=== PATIENT | female | born 1975 | race American Indian/Alaskan Native ===

== ENCOUNTER 2018-03-26 09:01 | Emergency (ER) | payer MEDICAID, SELFPAY ==
[2018-03-26 09:17] VITALS: BP 102/73; PULSE 70; RESP 12; TEMP 36.3; O2SAT 98
--- NOTE | 2018-03-26 09:27 | ED.EYEPROB ---
HPI - Eye Problem General Chief complaint: Eye Problems Stated complaint: POSSIBLE PINKEYE Time Seen by Provider: 03/26/18 09:08 Source: patient Mode of arrival: ambulatory Limitations: no limitations History of Present Illness HPI Narrative: Patient is a 43-year-old female who presents with right eye irritation. She thinks she has pinkeye. She says the last week or so she has woken up with crusting over her right eye. Today she is having more irritation. No real discharge throughout the day. She feels like he has some blurry vision. She does were glasses MD chief complaint: eye pain and eye redness Related Data Previous Rx's Medication Instructions Recorded polymyxin B sulf-trimethoprim 1 drop EYE-BOTH Q4HRWA 7 Days #10 03/26/18 [Polytrim] ml Allergies Allergy/AdvReac Type Severity Reaction Status Date / Time No Known Drug Allergies Allergy Verified 03/26/18 09:20 Review of Systems Review of Systems GENERAL: Denies chills,fever HEENT: See HPI RESPIRATORY: Denies dyspnea, cough, wheezing CARDIOVASCULAR: Denies chest pain, palpitations GASTROINTESTINAL: Denies nausea, vomiting MUSCULOSKELETAL: Denies extremity pain, injury SKIN: No rash, no laceration, no pruritus NEUROLOGIC: Denies weakness, dizziness, headache, numbness 8 point review of systems is negative except for those stated above and HPI PFSH Medical History Fibromyalgia (Acute) Social History Smoking Status: Never smoker alcohol intake: never substance use type: does not use Exam Initial Vital Signs Initial Vital Signs: Vital Signs Temperature 97.3 F L 03/26/18 09:17 Pulse Rate 70 03/26/18 09:17 Respiratory Rate 12 03/26/18 09:17 Blood Pressure 102/73 03/26/18 09:17 Pulse Oximetry 98 03/26/18 09:17 Const General: cooperative and healthy appearing Orientation: alert, awake and oriented x3 Eyes General: appearance normal, both eyes and all related structures Periorbital: periorbital findings normal Eyelids: eyelids normal Conjunctivae: conjunctival abnormality right conjunctival injection circumcorneal; without discharge Sclera: sclerae normal Cornea: corneas normal and fluorescein used (No dye uptake) EOM: EOM intact bilaterally Direct ophthalmoscopy: normal light reflex Other: Pressure in the right eye 25mmHg, pressure in left eye 23 mmHg Cardio Pulses: normal peripheral pulses Back/Spine/Pelvis Back: No CVA tenderness Cervical Spine: cervical ROM normal and No pain with cervical ROM Thoracic/Lumbar Spine: thoracic and lumbar spine normal to inspection Skin General: no rashes or lesions noted, No jaundice and No petechiae Neuro General: alert, awake and oriented x3 Cranial Nerves: CN's II-XI intact bilaterally Course Orders Ordered: Discontinued Medications Proparacaine HCl (Parcaine 0.5% Ophth Elva) 1 drops EYE-RIGHT NOW ONE Stop: 03/26/18 09:31 Last Admin: 03/26/18 09:31 Dose: 1 drop Vital Signs - 8 hr 03/26/18 09:17 Temperature 97.3 F L Pulse Rate 70 Respiratory Rate 12 Blood Pressure 102/73 Pulse Oximetry 98 Discharge Plan Departure Patient Disposition: Home Clinical Impression: Acute conjunctivitis, right eye Discharge Date/Time: 03/26/18 09:47 Interventions: ED Discharge Assessment Last Done: 03/26/18 09:46 Instructions: Conjunctivitis Activity Restrictions/Additional Instructions: *You have been diagnosed with right eye conjunctivitis *What to do: Eyes will be sensitive to light knee may need to wear sunglasses *Continue to take medications as directed Eda trim 1 drop both eyes every 4 hr while awake *Follow up with your primary care provider in 2-3 days *Return to ER if you should have eye pain, vision changes or any new, worsening or concerning symptoms Prescriptions: New polymyxin B sulf-trimethoprim [Polytrim] 10,000 unit- 1 mg/mL drops 1 drop EYE-BOTH Q4HRWA 7 Days Qty: 10 RF: 0
[2018-03-26] MEDS: PROPARACAINE 0.5% OPHTH SOL 1 DROPS EYE-RIGHT (09:31)
== END 2018-03-26 09:47 | disposition home or self-care (01) ==
PROVIDERS: Emergency Provider Emergency Medicine
DX: H10.31 Unspecified acute conjunctivitis, right eye (principal)
CPT/HCPCS: 99283

== ENCOUNTER 2018-03-28 16:55 | Emergency (ER) | payer MEDICAID, SELFPAY ==
[2018-03-28 17:03] VITALS: BP 105/69; PULSE 92; RESP 19; TEMP 36.7; O2SAT 96
--- NOTE | 2018-03-28 17:28 | ED.BACK ---
HPI - Back Pain/Injury <GLENIS Aviles - Last Filed: 03/28/18 22:12> General Chief Complaint: Back Pain/Injury Stated Complaint: PAIN ALL OVER Time Seen by Provider: 03/28/18 17:20 Source: patient Mode of arrival: ambulatory Limitations: no limitations History of Present Illness HPI Narrative: 43-year-old female with history of fibromyalgia here for complaint of having generalized body aches over the past several days. She states that she normally takes Lyrica for her fibromyalgia treatment. 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 She denies any trauma. No falls. Pain is mostly to the back area. She denies any stressors of her pain. She does state that stretching it does help with the discomfort. She denies any other current concerns or complaints at this timeframe. Related Data Previous Rx's Medication Instructions Recorded polymyxin B sulf-trimethoprim 1 drop EYE-BOTH Q4HRWA 7 Days #10 03/26/18 [Polytrim] ml cyclobenzaprine 10 mg PO TID PRN #20 tab 03/28/18 Allergies Allergy/AdvReac Type Severity Reaction Status Date / Time No Known Drug Allergies Allergy Verified 03/26/18 09:20 Review of Systems <GLENIS Aviles - Last Filed: 03/28/18 22:12> Constitutional Denies chills, Denies fever(s), Denies lethargy and Denies weakness Eyes Denies change in vision, Denies eye discharge, Denies irritation and Denies loss of vision ENT Ears, Nose, Mouth, and Throat: Denies change in voice, Denies neck pain and Denies sore throat Cardiovascular Denies chest pain, Denies irregular heart rhythm, Denies lightheadedness, Denies palpitations, Denies dyspnea, Denies dyspnea on exertion and Denies orthopnea Respiratory Denies cough, Denies dyspnea, Denies dyspnea on exertion and Denies wheezing Gastrointestinal Gastrointestinal: Denies abdominal pain, Denies change in bowel habits, Denies diarrhea, Denies nausea and Denies vomiting Genitourinary Denies hematuria, Denies flank pain, Denies urinary incontinence and Denies urinary urgency Musculoskeletal Denies neck pain Comments: Back pain and generalized body aches Integumentary/Breasts Denies pruritus, Denies erythema, Denies rash and Denies wounds Neurologic Denies confusion, Denies loss of vision and Denies weakness Psychiatric Denies anxiety, Denies confusion, Denies depression, Denies homicidal ideation and Denies suicidal ideation Endocrine Denies palpitations Hematologic/Lymphatic Denies easy bruising Allergic/Immunologic Denies wheezing Exam <GLENIS Aviles - Last Filed: 03/28/18 22:12> Initial Vital Signs Initial Vital Signs: Vital Signs Temperature 98.1 F 03/28/18 17:03 Pulse Rate 92 H 03/28/18 17:03 Respiratory Rate 19 03/28/18 17:03 Blood Pressure 105/69 03/28/18 17:03 Pulse Oximetry 96 03/28/18 17:03 Const General: cooperative and well developed Nutritional Appearance: well nourished Orientation: alert, awake, oriented x3 and not confused HENMT Mouth: oral mucosae normal and moist mucous membranes Eyes Conjunctivae: conjunctivae normal Sclera: sclerae normal Pupils: PERRL EOM: EOM intact bilaterally Resp Effort & Inspection: normal respiratory effort, able to speak in complete sentences, no respiratory distress and no use of accessory muscles Auscultation: clear to auscultation bilaterally, no rales, no rhonchi and no wheezes Cardio Rate: regular rate Rhythm: regular rhythm Heart Sounds: no click, no gallops, no murmurs and no rubs Pulses: normal peripheral pulses Neuro General: alert, oriented x3, gait normal and no focal motor deficits <Giancarlo Aguirre DO - Last Filed: 03/28/18 22:36> Initial Vital Signs Initial Vital Signs: Vital Signs Temperature 98.1 F 03/28/18 17:03 Pulse Rate 92 H 03/28/18 17:03 Respiratory Rate 19 03/28/18 17:03 Blood Pressure 105/69 03/28/18 17:03 Pulse Oximetry 96 03/28/18 17:03 Course <GLENIS Aviles - Last Filed: 03/28/18 22:12> Orders Ordered: Discontinued Medications Cyclobenzaprine HCl (Flexeril) 10 mg PO NOW ONE Stop: 03/28/18 18:06 Last Admin: 03/28/18 18:11 Dose: 10 mg Ibuprofen (Advil) 400 mg PO NOW ONE Stop: 03/28/18 18:06 Last Admin: 03/28/18 18:11 Dose: 400 mg Vital Signs - 8 hr 03/28/18 17:03 Temperature 98.1 F Pulse Rate 92 H Respiratory Rate 19 Blood Pressure 105/69 Pulse Oximetry 96 <Giancarlo Aguirre DO - Last Filed: 03/28/18 22:36> Orders Ordered: Discontinued Medications Cyclobenzaprine HCl (Flexeril) 10 mg PO NOW ONE Stop: 03/28/18 18:06 Last Admin: 03/28/18 18:11 Dose: 10 mg Ibuprofen (Advil) 400 mg PO NOW ONE Stop: 03/28/18 18:06 Last Admin: 03/28/18 18:11 Dose: 400 mg Vital Signs - 8 hr 03/28/18 17:03 Temperature 98.1 F Pulse Rate 92 H Respiratory Rate 19 Blood Pressure 105/69 Pulse Oximetry 96 MDM - Back Pain/Injury <GLENIS Aviles - Last Filed: 03/28/18 22:12> MDM Narrative Medical decision making narrative: Signs and symptoms presents as differential between a muscle strain into her back region and exacerbation of her fibromyalgia. [id number] ibuprofen as needed for any discomfort. She is given some cyclobenzaprine to see if it will help with muscle tension. Follow up with primary care provider in the next few days for re-evaluation. For any worsening symptoms return to the emergency room. Discharge Plan Departure Patient Disposition: Home Clinical Impression: Back pain Discharge Date/Time: 03/28/18 19:15 Interventions: ED Discharge Assessment Last Done: 03/28/18 19:15 Instructions: DI for Back Strain or Sprain Activity Restrictions/Additional Instructions: Signs and symptoms presents as back strain and maybe exacerbated by fibromyalgia. Use [id number] ibuprofen as needed for any discomfort. Your prescribed a muscle relaxer called cyclobenzaprine to help with muscle tension use as directed. No driving while on the muscle relaxers a can make you drowsy. Plenty of fluids. Gentle range of motion to the painful areas have keep muscles loose. Follow up with her primary care provider. Return emergency room for any worsening symptoms Prescriptions: New cyclobenzaprine 10 mg tablet 10 mg PO TID PRN (Reason: muscle spasm) Qty: 20 RF: 0 No Action polymyxin B sulf-trimethoprim [Polytrim] 10,000 unit- 1 mg/mL drops 1 drop EYE-BOTH Q4HRWA 7 Days Qty: 10 RF: 0 Referrals: [facility] [Provider Group] <Giancarlo Aguirre DO - Last Filed: 03/28/18 22:36> Cosign ED Attending Ade Attestation: I was available for consultation during this patient's emergency department encounter
[2018-03-28] MEDS: CYCLOBENZAPRINE 10 MG TABLET PO (18:11)
[2018-03-28] MEDS: IBUPROFEN 400 MG TABLET PO (18:11)
--- NOTE | 2018-03-28 18:54 | PC.NURSE ---
pt reports, my hands , feet, back are on fire, I have fibromyalgia, bulging disc, I know its the weather. denies trauma, injuries. awake, restless, pt sitting and reaching for her bilateral feet and massaging. skin warm dry pink.
== END 2018-03-28 19:15 | disposition home or self-care (01) ==
PROVIDERS: Emergency Provider Nurse Practitioner Family
DX: M54.9 Dorsalgia, unspecified (principal)
CPT/HCPCS: 99282; 99283

== ENCOUNTER 2018-04-16 10:36 | Emergency (ER) | payer MEDICAID, SELFPAY ==
[2018-04-16 10:43] VITALS: PULSE 75; RESP 16; O2SAT 98; BMI 23.9
[2018-04-16 10:44] VITALS: BP 104/70; PULSE 75; RESP 16; TEMP 36.5; O2SAT 98; BMI 23.9
--- NOTE | 2018-04-16 11:51 | PC.NURSE ---
pt reports back pain is all over body aches, she is thinking it comes on in the winter months and just aches all over. She reports chills, no fever, body aches.
[2018-04-16 12:00] LABS: Bacteria Urine None Seen
[2018-04-16 12:07] LABS: RBC Urine 0-1/HPF (0-5/HPF); Squamous Epithelial Cell Urine 1-5 /HPF; WBC Urine 0-1/HPF (0-5/HPF)
[2018-04-16 12:08] LABS: Culture Indicated Urine Cult Not Indicated
--- NOTE | 2018-04-16 12:08 | ED.BACK ---
HPI - Back Pain/Injury <Carolynn Childress PA-C - Last Filed: 04/16/18 21:55> General Chief Complaint: Back Pain/Injury Stated Complaint: BODY PAIN Time Seen by Provider: 04/16/18 12:07 Source: patient Mode of arrival: ambulatory Limitations: no limitations History of Present Illness HPI Narrative: This 43-year-old patient comes in due to back and body pain. She states that she thinks this is a flare of her fibromyalgia, because she has realized it happens every winter. She states that she aches all over, especially in her back and shoulder muscles. She states that she also has pain in her low back. Pain can radiate into both of her legs when she is walking, better with pressure off of her back. She denies any acute weakness or paresthesia. She denies any bowel or bladder changes aside from some white discharge (no dysuria, frequency, or urgency). She states that she wanted to check for UTI but is going to see her PCP for that discharge. She states that she has not had any new fever. She states that she has ongoing intermittent nausea but no acute change vomiting. She states that she has had workup and testing to rule out other problems besides fibromyalgia. She tried cyclobenzaprine which was not helpful after last visit here. She has not seen her PCP regarding adjusting medications. She denies possibility of , has IUD in place. Related Data Home Medications Medication Instructions Recorded Confirmed hydroxyzine HCl 25 mg PO Q8H PRN 04/16/18 04/16/18 pregabalin 150 mg PO DAILY 04/16/18 04/16/18 sertraline 100 mg PO DAILY 04/16/18 04/16/18 Previous Rx's Medication Instructions Recorded cyclobenzaprine 10 mg PO TID PRN #20 tab 03/28/18 meloxicam [Mobic] 15 mg PO DAILY #20 tab 04/16/18 Allergies Allergy/AdvReac Type Severity Reaction Status Date / Time No Known Drug Allergies Allergy Verified 04/16/18 10:43 Review of Systems <Carolynn Childress PA-C - Last Filed: 04/16/18 21:55> Review of Systems All systems reviewed & are unremarkable except as noted in HPI and below Exam <JOVANA Smith Last Filed: 04/16/18 21:55> Narrative Exam Narrative: GENERAL APPEARANCE: Patient sitting comfortably, in no distress. LUNGS: Clear to auscultation bilaterally. HEART: Rate and rhythm regular without murmur, normal S1 and S2, no S3 or S4. ABDOMEN: Soft, nontender, nondistended, +bowel sounds x4 quadrants MUSCULOSKELETAL: Generalized tenderness through the trapezius, shoulder, lumbar musculature, and SI joints, normal supine to sit and stand. Lower extremity strength 5/5 bilaterally throughout hip flexors, knee extensors, foot plantar flexion, negative modified straight leg raise DERMATOLOGIC: No exanthem PSYCHIATRIC: Alert, appropriate, affect is somewhat flat Initial Vital Signs Initial Vital Signs: Vital Signs Pulse Rate 75 04/16/18 10:43 Respiratory Rate 16 04/16/18 10:43 Pulse Oximetry 98 04/16/18 10:43 <DO Sonia Cook Last Filed: 04/20/18 08:04> Initial Vital Signs Initial Vital Signs: Vital Signs Pulse Rate 75 04/16/18 10:43 Respiratory Rate 16 04/16/18 10:43 Pulse Oximetry 98 04/16/18 10:43 Course <Carolynn Childress PA-C - Last Filed: 04/16/18 21:55> Orders Ordered: Discontinued Medications Ketorolac Tromethamine (Toradol) 60 mg IM NOW ONE Stop: 04/16/18 12:26 Last Admin: 04/16/18 12:31 Dose: 60 mg Vital Signs - 8 hr 04/16/18 10:43 04/16/18 10:44 Temperature 97.7 F Pulse Rate 75 75 Respiratory Rate 16 16 Blood Pressure 104/70 Pulse Oximetry 98 98 <DO Sonia Cook Last Filed: 04/20/18 08:04> Orders Ordered: Discontinued Medications Ketorolac Tromethamine (Toradol) 60 mg IM NOW ONE Stop: 04/16/18 12:26 Last Admin: 04/16/18 12:31 Dose: 60 mg Vital Signs - 8 hr 04/16/18 10:43 04/16/18 10:44 Temperature 97.7 F Pulse Rate 75 75 Respiratory Rate 16 16 Blood Pressure 104/70 Pulse Oximetry 98 98 MDM - Back Pain/Injury <JOVANA Smith Last Filed: 04/16/18 21:55> Lab Data Lab Results 04/16/18 Range/Units 11:27 Urine RBC 0-1/hpf (0-5/HPF) Urine WBC 0-1/hpf (0-5/HPF) Ur Squamous Epith Cells 1-5 /hpf Urine Bacteria None seen (None) Ur Culture Indicated? Cult not indicated Micro UA Comment Not Reportable Point of Care Testing Test Results Negative Urine Dip Bedside Urine Glucose Negative Bedside Urine Bilirubin - Negative Bedside Urine Ketone - Negative Urine Specific [place] 1.010 Bedside Urine Occult Blood - Negative Bedside Urine pH 6.5 Bedside Urine Protein - Negative Bedside Urine Urobilinogen - Negative Bedside Urine Nitrite - Negative Bedside Urine Leukocytes ++ 125 Esterase <Gianna Loredo, - Last Filed: 04/20/18 08:04> Lab Data Lab Results 04/16/18 Range/Units 11:27 Urine RBC 0-1/hpf (0-5/HPF) Urine WBC 0-1/hpf (0-5/HPF) Ur Squamous Epith Cells 1-5 /hpf Urine Bacteria None seen (None) Ur Culture Indicated? Cult not indicated Micro UA Comment Not Reportable Point of Care Testing Test Results Negative Urine Dip Bedside Urine Glucose Negative Bedside Urine Bilirubin - Negative Bedside Urine Ketone - Negative Urine Specific [place] 1.010 Bedside Urine Occult Blood - Negative Bedside Urine pH 6.5 Bedside Urine Protein - Negative Bedside Urine Urobilinogen - Negative Bedside Urine Nitrite - Negative Bedside Urine Leukocytes ++ 125 Esterase Discharge Plan Departure Patient Disposition: Home Clinical Impression: Fibromyalgia affecting multiple sites Discharge Date/Time: 04/16/18 12:55 Interventions: ED Discharge Assessment Last Done: 04/16/18 12:48 Instructions: Managing Chronic Low Back Pain, Fibromyalgia, Exercise May Reduce Risk of Low Back Pain Activity Restrictions/Additional Instructions: Please continue your usual activities as much as possible, as in the long run this tends to be helpful for fibromyalgia. Please check on her physical therapy referral as this will likely be helpful as well. I have sent in a prescription for a long-acting anti-inflammatory/pain reliever, meloxicam, to your pharmacy. Please start this as well in addition to your regular medications. Try this until you follow up with your PCP to see whether helpful. Please discuss increasing your sertraline and Lyrica, as this may be helpful for your pain as well. You can also add [id number] Tylenol (I like Tylenol arthritis Strength or 8 hr, which can be taken 3 times daily) to the medicines you are taking now Prescriptions: New meloxicam [Mobic] 15 mg tablet 15 mg PO DAILY Qty: 20 RF: 0 No Action cyclobenzaprine 10 mg tablet 10 mg PO TID PRN (Reason: muscle spasm) Qty: 20 RF: 0 sertraline 100 mg Tablet 100 mg PO DAILY RF: 0 hydroxyzine HCl 25 mg Tablet 25 mg PO Q8H PRN (Reason: Anxiety) RF: 0 pregabalin 150 mg Capsule 150 mg PO DAILY RF: 0 Referrals: Pavel Soler MD [Non-Staff] - <Gianna Loredo DO - Last Filed: 04/20/18 08:04> Cosign ED Attending Cosignature Attestation: I was immediately available in the department for consultation. Documentation has been reviewed. I agree with assessment and plan.
[2018-04-16] MEDS: KETOROLAC 60 MG/2 ML VIAL IM (12:31)
[2018-04-16 12:48] VITALS: BP 103/59; PULSE 68; RESP 18; O2SAT 100
== END 2018-04-16 12:55 | disposition home or self-care (01) ==
PROVIDERS: Emergency Medicine; Emergency Provider Internal Medicine
DX: M79.7 Fibromyalgia (principal)
CPT/HCPCS: 81003; 81015; 81025; 96372; 99283; J1885

== ENCOUNTER 2018-05-08 17:15 | Emergency (ER) | payer MEDICAID, SELFPAY ==
[2018-05-08 17:35] VITALS: BP 109/80; PULSE 63; RESP 15; TEMP 36.8; O2SAT 99; BMI 23.9
== END 2018-05-08 18:19 | disposition left against medical advice (07) ==
LOC: ED 17:19
PROVIDERS: Family Provider Family Medicine; PCP Family Medicine
DX: M54.2 Cervicalgia (principal)
CPT/HCPCS: 99281; 99282

== ENCOUNTER 2018-06-14 12:38 | Emergency (ER) | payer MEDICAID, SELFPAY ==
[2018-06-14 13:03] VITALS: BP 100/60; PULSE 95; RESP 16; TEMP 36.3; O2SAT 97
--- NOTE | 2018-06-14 13:26 | ED.MEDCLEAR ---
HPI - Medical Clearance <GLENIS Aviles - Last Filed: 06/14/18 21:31> General Chief complaint: Medical Clearance Stated complaint: ETOH DETOX FOR CLEARANCE Time Seen by Provider: 06/14/18 12:45 Source: patient Mode of arrival: ambulatory Limitations: no limitations History of Present Illness HPI Narrative: 43-year-old female with history of fibromyalgia here for complaint of alcohol intoxication. She was sent here from the [facility] for evaluation due to the intoxication. Patient states that she has been drinking up until about 2 hr ago. She denies any suicidal ideation. She denies any homicidal ideation. She does not desire medical detox at this timeframe. She states she does have a headache and has some neck pain that she has had for the last a year. She denies any trauma to the area. She states she is concerned of a tumor as her for sister of a tumor. The pain radiates from her head down into her neck. She denies any other concerns or complaints at this timeframe. Patient actually desires to go home at this timeframe. She was encouraged to stay to at least check labs and get imaging of head and neck. Home Medications Medication Instructions Recorded Confirmed hydroxyzine HCl 25 mg PO Q8H PRN 04/16/18 04/16/18 pregabalin 150 mg PO DAILY 04/16/18 04/16/18 sertraline 100 mg PO DAILY 04/16/18 04/16/18 Previous Rx's Medication Instructions Recorded cyclobenzaprine 10 mg PO TID PRN #20 tab 03/28/18 meloxicam [Mobic] 15 mg PO DAILY #20 tab 04/16/18 Allergies Allergy/AdvReac Type Severity Reaction Status Date / Time No Known Drug Allergies Allergy Verified 05/08/18 17:35 Review of Systems <GLENIS Aviles - Last Filed: 06/14/18 21:31> Review of Systems Alcohol intoxication Constitutional Denies chills, Denies fever(s), Denies lethargy and Denies weakness Eyes Denies change in vision, Denies eye discharge, Denies irritation and Denies loss of vision ENT Ears, Nose, Mouth, and Throat: Denies change in voice, Denies neck pain and Denies sore throat Cardiovascular Denies chest pain, Denies irregular heart rhythm, Denies lightheadedness, Denies palpitations, Denies dyspnea, Denies dyspnea on exertion and Denies orthopnea Respiratory Denies cough, Denies dyspnea, Denies dyspnea on exertion and Denies wheezing Gastrointestinal Gastrointestinal: Denies abdominal pain, Denies change in bowel habits, Denies diarrhea, Denies nausea and Denies vomiting Genitourinary Denies hematuria, Denies flank pain, Denies urinary incontinence and Denies urinary urgency Musculoskeletal Denies neck pain Integumentary/Breasts Denies pruritus, Denies erythema, Denies rash and Denies wounds Neurologic Denies loss of vision and Denies weakness Comments: Headache radiating to neck Endocrine Denies palpitations Allergic/Immunologic Denies wheezing PFSH <GLENIS Aviles - Last Filed: 06/14/18 21:31> Medical History Depression with anxiety (Chronic) Fibromyalgia (Chronic) Thrombocytosis (Chronic) Family History Other Family history non-contributory Social History Smoking Status: Never smoker alcohol intake: never substance use type: does not use Family History Other Family history non-contributory Social History Smoking Status: Never smoker alcohol intake: never substance use type: does not use Exam <GLENIS Aviles - Last Filed: 06/14/18 21:31> Initial Vital Signs Initial Vital Signs: Vital Signs Temperature 97.3 F L 06/14/18 13:03 Pulse Rate 95 H 06/14/18 13:03 Respiratory Rate 16 06/14/18 13:03 Blood Pressure 100/60 06/14/18 13:03 Pulse Oximetry 97 06/14/18 13:03 Const General: cooperative and well developed Nutritional Appearance: well nourished Orientation: alert, awake, oriented x3 and not confused [facility] Head: normal to inspection, normocephalic and atraumatic Face and sinus: no sinus tenderness Mouth: oral mucosae normal and moist mucous membranes Throat: posterior oropharynx normal Eyes Conjunctivae: conjunctivae normal Sclera: sclerae normal Pupils: PERRL EOM: EOM intact bilaterally Neck Neck: normal visual inspection, trachea midline, No lymphadenopathy, No midline deformity and No JVD Lymphatic: No lymphedema Chest Chest: normal inspection of the chest Resp Effort & Inspection: normal respiratory effort, able to speak in complete sentences, no respiratory distress and no use of accessory muscles Auscultation: clear to auscultation bilaterally, no rales, no rhonchi and no wheezes Cardio Rate: regular rate Rhythm: regular rhythm Heart Sounds: no click, no gallops, no murmurs and no rubs Pulses: normal peripheral pulses Neuro General: alert, oriented x3, gait normal and no focal motor deficits Speech: speech normal <Giancarlo Aguirre DO - Last Filed: 06/15/18 20:20> Initial Vital Signs Initial Vital Signs: Vital Signs Temperature 97.3 F L 06/14/18 13:03 Pulse Rate 95 H 06/14/18 13:03 Respiratory Rate 16 06/14/18 13:03 Blood Pressure 100/60 06/14/18 13:03 Pulse Oximetry 97 06/14/18 13:03 MDM - Medical Clearance <GLENIS Aviles - Last Filed: 06/14/18 21:31> Lab Data Result diagrams: 06/14/18 14:12 06/14/18 14:12 Lab Results 06/14/18 06/14/18 06/14/18 Range/Units 12:55 14:12 14:12 WBC 8.5 (4.5-11.0) X10^3/uL RBC 5.05 (4.0-5.2) X10^6/uL Hgb 14.7 (12.0-16.0) g/dL Hct 44.8 (36-46) % MCV 88.6 (80-100) fL MCH 29.2 (26-34) PG MCHC 32.9 (30-36) % RDW 14.3 (11.6-14.8) % Plt Count 594 H (150-400) X10^3/uL Neut % (Auto) 71.4 (50-75) % Lymph % (Auto) 23.1 L (25-40) % Vil[place] % (Auto) 3.6 (3-14) % Eos % (Auto) 0.7 L (2-4) % Baso % (Auto) 1.2 (0-2) % Neut # (Auto) 6100 (3666-7573) /uL Lymph # (Auto) 2000 (9806-3790) /uL Vil[place] # (Auto) 300 (0-900) /uL Eos # (Auto) 100 (0-450) /uL Baso # (Auto) 100 (0-100) /uL Sodium 146 H (137-145) mmol/L Potassium 4.2 (3.4-5.1) mmol/L Chloride 106 (98-107) mmol/L Carbon Dioxide 27 (22-32) mmol/L BUN 6 L (7-17) mg/dL Creatinine 0.60 (0.52-1.04) mg/dL Estimated GFR > 60.0 (>60) mL/min BUN/Creatinine Ratio 10.0 (6-22) Glucose 99 (70-100) mg/dL Calcium 8.8 (8.4-10.2) mg/dL Total Bilirubin 0.3 (0.2-1.3) mg/dL AST 28 (14-36) IU/L ALT 34 (9-52) IU/L Alkaline Phosphatase 57 (38-126) U/L Total Protein 8.8 H (6.3-8.2) g/dL Albumin 4.9 (3.5-5.0) g/dL Globulin 3.9 (1.7-4.1) g/dL Albumin/Globulin Ratio 1.3 (1.0-2.8) Urine Test Negative (Negative) Urine Opiates Screen (Negative) Ur Oxycodone Screen (Negative) Urine Methadone Screen (Negative) Ur Barbiturates Screen (Negative) U Tricyclic Antidepress (Negative) Ur Phencyclidine Scrn (Negative) Ur Amphetamines Screen (Negative) U Methamphetamines Scrn (Negative) Ur MDMA Scrn (Ecstasy) (Negative) U Benzodiazepines Scrn (Negative) Urine Cocaine Screen (Negative) U Marijuana (THC) Screen (Negative) Ethyl Alcohol mg/dL 06/14/18 06/14/18 Range/Units 14:12 14:12 WBC (4.5-11.0) X10^3/uL RBC (4.0-5.2) X10^6/uL Hgb (12.0-16.0) g/dL Hct (36-46) % MCV (80-100) fL MCH (26-34) PG MCHC (30-36) % RDW (11.6-14.8) % Plt Count (150-400) X10^3/uL Neut % (Auto) (50-75) % Lymph % (Auto) (25-40) % Vilas % (Auto) (3-14) % Eos % (Auto) (2-4) % Baso % (Auto) (0-2) % Neut # (Auto) (8436-7587) /uL Lymph # (Auto) (5453-3205) /uL Vilas # (Auto) (0-900) /uL Eos # (Auto) (0-450) /uL Baso # (Auto) (0-100) /uL Sodium (137-145) mmol/L Potassium (3.4-5.1) mmol/L Chloride (98-107) mmol/L Carbon Dioxide (22-32) mmol/L BUN (7-17) mg/dL Creatinine (0.52-1.04) mg/dL Estimated GFR (>60) mL/min BUN/Creatinine Ratio (6-22) Glucose (70-100) mg/dL Calcium (8.4-10.2) mg/dL Total Bilirubin (0.2-1.3) mg/dL AST (14-36) IU/L ALT (9-52) IU/L Alkaline Phosphatase (38-126) U/L Total Protein (6.3-8.2) g/dL Albumin (3.5-5.0) g/dL Globulin (1.7-4.1) g/dL Albumin/Globulin Ratio (1.0-2.8) Urine Test (Negative) Urine Opiates Screen Negative (Negative) Ur Oxycodone Screen Negative (Negative) Urine Methadone Screen Negative (Negative) Ur Barbiturates Screen Negative (Negative) U Tricyclic Antidepress Negative (Negative) Ur Phencyclidine Scrn Negative (Negative) Ur Amphetamines Screen Negative (Negative) U Methamphetamines Scrn Negative (Negative) Ur MDMA Scrn (Ecstasy) Negative (Negative) U Benzodiazepines Scrn Negative (Negative) Urine Cocaine Screen Negative (Negative) U Marijuana (THC) Screen Positive H (Negative) Ethyl Alcohol 188 mg/dL Urine Dip Bedside Urine Glucose Negative Bedside Urine Bilirubin - Negative Bedside Urine Ketone - Negative Urine Specific [place] 1.010 Bedside Urine Occult Blood - Negative Bedside Urine pH 6.0 Bedside Urine Protein - Negative Bedside Urine Urobilinogen - Negative Bedside Urine Nitrite - Negative Bedside Urine Leukocytes - Negative Esterase Imaging Data CT scan - head: Radiologist's impression: [address] [address] [address] Scan Report Signed Patient: Eri Rizvi AMR#: [id number] : 1975Acct:[id number] Age/Sex: 43 / FDate of Service: 06/14/18 Loc: ED Accession Number: [id number] Procedure: CT head/brain wo con Ordering Provider: Augustin Naranjo PROCEDURE: CT HEAD/BRAIN WO CON INDICATIONS: States has frequent headaches and neck pain TECHNIQUE: Noncontrast 4.5 mm thick angled axial sections acquired from the foramen magnum to the vertex, with coronal and sagittal reformats. For radiation dose reduction, the following was used: automated exposure control, adjustment of mA and/or kV according to patient size. COMPARISON: None. FINDINGS: Image quality: Excellent. CSF spaces: Basal cisterns are patent. No extra-axial fluid collections. Ventricles are normal in size and shape. Brain: No midline shift. No intracranial masses or hemorrhage. Weems-white matter interface is normal. Skull and face: Calvarium and visualized facial bones are intact, without suspicious lesions. Sinuses: Visualized sinuses and mastoids are clear. IMPRESSION: No acute intracranial disease process. Dictated by: Lisandra Hernandez MD, PhD on 06/14/2018 at 14:10 Approved by: Lisandra Hernandez MD, PhD on 06/14/2018 at 14:[address] : Radiologist's impression: [address] [address] [address] Scan Report Signed Patient: Eri Rizvi AMR#: [id number] : 1975Acct:[id number] Age/Sex: 43 / FDate of Service: 06/14/18 Loc: ED Accession Number: [id number] Procedure: CT cervical spine wo con Ordering Provider: Augustin Naranjo PROCEDURE: CT CERVICAL SPINE WO CON INDICATIONS: States has frequent headaches and neck pain TECHNIQUE: Noncontrast 3 mm thick sections acquired from the skull base to the T4 level. Sagittal and coronal reformats were then constructed. For radiation dose reduction, the following was used: automated exposure control, adjustment of mA and/or kV according to patient size. COMPARISON: None. FINDINGS: Image quality: Excellent. Bones: No fractures or dislocations. Visualized superior ribs are intact. Mild multilevel degenerative disc disease and facet arthropathy are noted. Soft tissues: Prevertebral soft tissues are normal in thickness. No paravertebral hematomas. No apical pneumothoraces. IMPRESSION: No fracture. No acute osseous lesion. If symptoms and/or clinical suspicion for pathology persists, evaluation with MRI may be helpful for further assessment. Dictated by: Lisandra Hernandez MD, PhD on 06/14/2018 at 14:13 Approved by: Lisandra Hernandez MD, PhD on 06/14/2018 at 14:19 [facility] Narrative Medical decision making narrative: Due to patient's report of family history of due to tumor. CT of the head and neck were obtained and were negative for any acute findings. To fibromyalgia or tension headache.CBC and Chem panel were obtained and were unremarkable. ETOH was at 188. Rapid drug screen shows positive for marijuana no other findings. Patient desires to go home. She presents as being capable of making sound decisions. She has a friend that is coming to pick her up so she will have someone to drive her home and will also have somebody available to keep an eye on her. Follow up with primary care provider. Fibromyalgia medications as prescribed for discomfort. For any worsening symptoms return to the emergency room. <Giancarlo Aguirre, DO - Last Filed: 06/15/18 20:20> Lab Data Lab Results 06/14/18 06/14/18 06/14/18 Range/Units 12:55 14:12 14:12 WBC 8.5 (4.5-11.0) X10^3/uL RBC 5.05 (4.0-5.2) X10^6/uL Hgb 14.7 (12.0-16.0) g/dL Hct 44.8 (36-46) % MCV 88.6 (80-100) fL MCH 29.2 (26-34) PG MCHC 32.9 (30-36) % RDW 14.3 (11.6-14.8) % Plt Count 594 H (150-400) X10^3/uL Neut % (Auto) 71.4 (50-75) % Lymph % (Auto) 23.1 L (25-40) % Vilas % (Auto) 3.6 (3-14) % Eos % (Auto) 0.7 L (2-4) % Baso % (Auto) 1.2 (0-2) % Neut # (Auto) 6100 (4743-8004) /uL Lymph # (Auto) 2000 (9545-9634) /uL Vilas # (Auto) 300 (0-900) /uL Eos # (Auto) 100 (0-450) /uL Baso # (Auto) 100 (0-100) /uL Sodium 146 H (137-145) mmol/L Potassium 4.2 (3.4-5.1) mmol/L Chloride 106 (98-107) mmol/L Carbon Dioxide 27 (22-32) mmol/L BUN 6 L (7-17) mg/dL Creatinine 0.60 (0.52-1.04) mg/dL Estimated GFR > 60.0 (>60) mL/min BUN/Creatinine Ratio 10.0 (6-22) Glucose 99 (70-100) mg/dL Calcium 8.8 (8.4-10.2) mg/dL Total Bilirubin 0.3 (0.2-1.3) mg/dL AST 28 (14-36) IU/L ALT 34 (9-52) IU/L Alkaline Phosphatase 57 (38-126) U/L Total Protein 8.8 H (6.3-8.2) g/dL Albumin 4.9 (3.5-5.0) g/dL Globulin 3.9 (1.7-4.1) g/dL Albumin/Globulin Ratio 1.3 (1.0-2.8) Urine Test Negative (Negative) Urine Opiates Screen (Negative) Ur Oxycodone Screen (Negative) Urine Methadone Screen (Negative) Ur Barbiturates Screen (Negative) U Tricyclic Antidepress (Negative) Ur Phencyclidine Scrn (Negative) Ur Amphetamines Screen (Negative) U Methamphetamines Scrn (Negative) Ur MDMA Scrn (Ecstasy) (Negative) U Benzodiazepines Scrn (Negative) Urine Cocaine Screen (Negative) U Marijuana (THC) Screen (Negative) Ethyl Alcohol mg/dL 06/14/18 06/14/18 Range/Units 14:12 14:12 WBC (4.5-11.0) X10^3/uL RBC (4.0-5.2) X10^6/uL Hgb (12.0-16.0) g/dL Hct (36-46) % MCV (80-100) fL MCH (26-34) PG MCHC (30-36) % RDW (11.6-14.8) % Plt Count (150-400) X10^3/uL Neut % (Auto) (50-75) % Lymph % (Auto) (25-40) % Vil[place] % (Auto) (3-14) % Eos % (Auto) (2-4) % Baso % (Auto) (0-2) % Neut # (Auto) (3714-0488) /uL Lymph # (Auto) (7577-0626) /uL Vilas # (Auto) (0-900) /uL Eos # (Auto) (0-450) /uL Baso # (Auto) (0-100) /uL Sodium (137-145) mmol/L Potassium (3.4-5.1) mmol/L Chloride (98-107) mmol/L Carbon Dioxide (22-32) mmol/L BUN (7-17) mg/dL Creatinine (0.52-1.04) mg/dL Estimated GFR (>60) mL/min BUN/Creatinine Ratio (6-22) Glucose (70-100) mg/dL Calcium (8.4-10.2) mg/dL Total Bilirubin (0.2-1.3) mg/dL AST (14-36) IU/L ALT (9-52) IU/L Alkaline Phosphatase (38-126) U/L Total Protein (6.3-8.2) g/dL Albumin (3.5-5.0) g/dL Globulin (1.7-4.1) g/dL Albumin/Globulin Ratio (1.0-2.8) Urine Test (Negative) Urine Opiates Screen Negative (Negative) Ur Oxycodone Screen Negative (Negative) Urine Methadone Screen Negative (Negative) Ur Barbiturates Screen Negative (Negative) U Tricyclic Antidepress Negative (Negative) Ur Phencyclidine Scrn Negative (Negative) Ur Amphetamines Screen Negative (Negative) U Methamphetamines Scrn Negative (Negative) Ur MDMA Scrn (Ecstasy) Negative (Negative) U Benzodiazepines Scrn Negative (Negative) Urine Cocaine Screen Negative (Negative) U Marijuana (THC) Screen Positive H (Negative) Ethyl Alcohol 188 mg/dL Urine Dip Bedside Urine Glucose Negative Bedside Urine Bilirubin - Negative Bedside Urine Ketone - Negative Urine Specific [place] 1.010 Bedside Urine Occult Blood - Negative Bedside Urine pH 6.0 Bedside Urine Protein - Negative Bedside Urine Urobilinogen - Negative Bedside Urine Nitrite - Negative Bedside Urine Leukocytes - Negative Esterase Discharge Plan Departure Patient Disposition: Home Clinical Impression: Alcohol intoxication Qualifiers: Complication of substance-induced condition: uncomplicated Qualified Code(s): F10.920 - Alcohol use, unspecified with intoxication, uncomplicated Headache Qualifiers: Headache type: tension-type Headache chronicity pattern: acute headache Intractability: not intractable Qualified Code(s): G44.209 - Tension-type headache, unspecified, not intractable Discharge Date/Time: 06/14/18 16:09 Interventions: ED Discharge Assessment Last Done: 06/14/18 16:08 Instructions: DI for Headache Activity Restrictions/Additional Instructions: CT scan of her head and neck were obtained were negative for any acute findings. Headache/neck pain presents as tension headache or secondary to fibromyalgia. Use her currently prescribed fibromyalgia medications as directed. Follow up with your primary care provider. Gentle range of motion to neck muscles to help keep the muscles use to the neck area. No driving for the next 24 hr due to alcohol intoxication. Follow up with her primary care provider. Return emergency room for any worsening symptoms. Prescriptions: No Action cyclobenzaprine 10 mg tablet 10 mg PO TID PRN (Reason: muscle spasm) Qty: 20 RF: 0 sertraline 100 mg Tablet 100 mg PO DAILY RF: 0 hydroxyzine HCl 25 mg Tablet 25 mg PO Q8H PRN (Reason: Anxiety) RF: 0 pregabalin 150 mg Capsule 150 mg PO DAILY RF: 0 meloxicam [Mobic] 15 mg tablet 15 mg PO DAILY Qty: 20 RF: 0 Referrals: Satish Dong [Primary Care Provider] - <Giancarlo Aguirre DO - Last Filed: 06/15/18 20:20> Cosign ED Attending Cosingrisature Attestation: I was available for consultation during this patient's emergency department encounter
--- NOTE | 2018-06-14 13:43 | DI.CT.S_ITS ---
PROCEDURE: CT CERVICAL SPINE WO CON INDICATIONS: States has frequent headaches and neck pain TECHNIQUE: Noncontrast 3 mm thick sections acquired from the skull base to the T4 level. Sagittal and coronal reformats were then constructed. For radiation dose reduction, the following was used: automated exposure control, adjustment of mA and/or kV according to patient size. COMPARISON: None. FINDINGS: Image quality: Excellent. Bones: No fractures or dislocations. Visualized superior ribs are intact. Mild multilevel degenerative disc disease and facet arthropathy are noted. Soft tissues: Prevertebral soft tissues are normal in thickness. No paravertebral hematomas. No apical pneumothoraces. IMPRESSION: No fracture. No acute osseous lesion. If symptoms and/or clinical suspicion for pathology persists, evaluation with MRI may be helpful for further assessment. Dictated by: Lisandra Hernandez MD, PhD on 06/14/2018 at 14:13 Approved by: Lisandra Hernandez MD, PhD on 06/14/2018 at 14:19
--- NOTE | 2018-06-14 13:43 | DI.CT.S_ITS ---
PROCEDURE: CT HEAD/BRAIN WO CON INDICATIONS: States has frequent headaches and neck pain TECHNIQUE: Noncontrast 4.5 mm thick angled axial sections acquired from the foramen magnum to the vertex, with coronal and sagittal reformats. For radiation dose reduction, the following was used: automated exposure control, adjustment of mA and/or kV according to patient size. COMPARISON: None. FINDINGS: Image quality: Excellent. CSF spaces: Basal cisterns are patent. No extra-axial fluid collections. Ventricles are normal in size and shape. Brain: No midline shift. No intracranial masses or hemorrhage. Weems-white matter interface is normal. Skull and face: Calvarium and visualized facial bones are intact, without suspicious lesions. Sinuses: Visualized sinuses and mastoids are clear. IMPRESSION: No acute intracranial disease process. Dictated by: Lisandra Hernandez MD, PhD on 06/14/2018 at 14:10 Approved by: Lisandra Hernandez MD, PhD on 06/14/2018 at 14:13
[2018-06-14 13:59] LABS: Pregnancy Test Urine Negative (Negative)
--- NOTE | 2018-06-14 14:18 | PC.NURSE ---
Pt is a/o x 3, no slurred speech, no ataxia. Requesting to be discharged. Informed that she can leave at any point in time however it would be AMA as we do not have her results back. She agrees to stay.
[2018-06-14 14:25] LABS: Add Manual Diff / Slide Review NO; Basophils Absolute Auto 100 /uL (0-100); Basophils Percent Auto 1.2 % (0-2); Eosinophils Absolute Auto 100 /uL (0-450); Eosinophils Percent Auto 0.7 % (2-4); Hematocrit 44.8 % (36-46); Hemoglobin 14.7 g/dL (12.0-16.0); Lymphocytes Absolute Auto 2000 /uL (1100-4500); Lymphocytes Percent Auto 23.1 % (25-40); Mean Corpuscular HGB Conc 32.9 % (30-36); Mean Corpuscular Hemoglobin 29.2 PG (26-34); Mean Corpuscular Volume 88.6 fL (80-100); Monocytes Absolute Auto 300 /uL (0-900); Monocytes Percent Auto 3.6 % (3-14); Neutrophils Absolute Auto 6100 /uL (1500-7000); Neutrophils Percent Auto 71.4 % (50-75); Platelet Count 594 X10^3/uL (150-400); Red Blood Cell Count 5.05 X10^6/uL (4.0-5.2); Red Cell Distribution Width 14.3 % (11.6-14.8); White Blood Cell Count 8.5 X10^3/uL (4.5-11.0)
[2018-06-14 14:37] LABS: Alanine Aminotransferase 34 IU/L (9-52); Albumin 4.9 g/dL (3.5-5.0); Albumin Globulin Ratio 1.3 (1.0-2.8); Alkaline Phosphatase 57 U/L (38-126); Aspartate Aminotransferase 28 IU/L (14-36); Bilirubin Total 0.3 mg/dL (0.2-1.3); Blood Urea Nitrogen 6 mg/dL (7-17); Calcium 8.8 mg/dL (8.4-10.2); Carbon Dioxide 27 mmol/L (22-32); Chloride 106 mmol/L (98-107); Estimated Glomerular Filt Rate > 60.0 mL/min (>60); Globulin 3.9 g/dL (1.7-4.1); Glucose 99 mg/dL (70-100); HEMOLYSIS < 15 (0-50); Potassium 4.2 mmol/L (3.4-5.1); Sodium 146 mmol/L (137-145); Total Protein 8.8 g/dL (6.3-8.2)
[2018-06-14 14:38] LABS: Ethanol (ETOH) 188 mg/dL
--- NOTE | 2018-06-14 15:06 | PC.NURSE ---
refused vital signs.
[2018-06-14 15:31] LABS: Urine Amphetamines Negative (Negative); Urine Barbiturates Negative (Negative); Urine Benzodiazepines Negative (Negative); Urine Cocaine Negative (Negative); Urine MDMA Negative (Negative); Urine Methadone Negative (Negative); Urine Methamphetamines Negative (Negative); Urine Morphine/Opi cutoff 2000 Negative (Negative); Urine Oxycodone Negative (Negative); Urine Phencyclidine Negative (Negative); Urine Tricyclic Antidepressant Negative (Negative)
[2018-06-14 15:32] LABS: Urine Tetrahydrocannabinol Positive (Negative)
--- NOTE | 2018-06-14 16:01 | ED_ITS ---
HPI - Medical Clearance <GLENIS Aviles - Last Filed: 06/14/18 21:31> General Chief complaint: Medical Clearance Stated complaint: ETOH DETOX FOR CLEARANCE Time Seen by Provider: 06/14/18 12:45 Source: patient Mode of arrival: ambulatory Limitations: no limitations History of Present Illness HPI Narrative: 43-year-old female with history of fibromyalgia here for complaint of alcohol intoxication. She was sent here from the [facility] for evaluation due to the intoxication. Patient states that she has been drinking up until about 2 hr ago. She denies any suicidal ideation. She denies any homicidal ideation. She does not desire medical detox at this timeframe. She states she does have a headache and has some neck pain that she has had for the last a year. She denies any trauma to the area. She states she is concerned of a tumor as her for sister of a tumor. The pain radiates from her head down into her neck. She denies any other concerns or complaints at this timeframe. Patient actually desires to go home at this timeframe. She was encouraged to stay to at least check labs and get imaging of head and neck. Home Medications Medication Instructions Recorded Confirmed hydroxyzine HCl 25 mg PO Q8H PRN 04/16/18 04/16/18 pregabalin 150 mg PO DAILY 04/16/18 04/16/18 sertraline 100 mg PO DAILY 04/16/18 04/16/18 Previous Rx's Medication Instructions Recorded cyclobenzaprine 10 mg PO TID PRN #20 tab 03/28/18 meloxicam [Mobic] 15 mg PO DAILY #20 tab 04/16/18 Allergies Allergy/AdvReac Type Severity Reaction Status Date / Time No Known Drug Allergies Allergy Verified 05/08/18 17:35 Review of Systems <GLENIS Aviles - Last Filed: 06/14/18 21:31> Review of Systems Alcohol intoxication Constitutional Denies chills, Denies fever(s), Denies lethargy and Denies weakness Eyes Denies change in vision, Denies eye discharge, Denies irritation and Denies loss of vision ENT Ears, Nose, Mouth, and Throat: Denies change in voice, Denies neck pain and Denies sore throat Cardiovascular Denies chest pain, Denies irregular heart rhythm, Denies lightheadedness, Denies palpitations, Denies dyspnea, Denies dyspnea on exertion and Denies orthopnea Respiratory Denies cough, Denies dyspnea, Denies dyspnea on exertion and Denies wheezing Gastrointestinal Gastrointestinal: Denies abdominal pain, Denies change in bowel habits, Denies diarrhea, Denies nausea and Denies vomiting Genitourinary Denies hematuria, Denies flank pain, Denies urinary incontinence and Denies ur inary urgency Musculoskeletal Denies neck pain Integumentary/Breasts Denies pruritus, Denies erythema, Denies rash and Denies wounds Neurologic Denies loss of vision and Denies weakness Comments: Headache radiating to neck Endocrine Denies palpitations Allergic/Immunologic Denies wheezing PFSH <GLENIS Aviles - Last Filed: 06/14/18 21:31> Medical History Depression with anxiety (Chronic) Fibromyalgia (Chronic) Thrombocytosis (Chronic) Family History Other Family history non-contributory Social History Smoking Status: Never smoker alcohol intake: never substance use type: does not use Family History Other Family history non-contributory Social History Smoking Status: Never smoker alcohol intake: never substance use type: does not use Exam <GLENIS Aviles - Last Filed: 06/14/18 21:31> Initial Vital Signs Initial Vital Signs: Vital Signs Temperature 97.3 F L 06/14/18 13:03 Pulse Rate 95 H 06/14/18 13:03 Respiratory Rate 16 06/14/18 13:03 Blood Pressure 100/60 06/14/18 13:03 Pulse Oximetry 97 06/14/18 13:03 Const General: cooperative and well developed Nutritional Appearance: well nourished Orientation: alert, awake, oriented x3 and not confused [facility] Head: normal to inspection, normocephalic and atraumatic Face and sinus: no sinus tenderness Mouth: oral mucosae normal and moist mucous membranes Throat: posterior oropharynx normal Eyes Conjunctivae: conjunctivae normal Sclera: sclerae normal Pupils: PERRL EOM: EOM intact bilaterally Neck Neck: normal visual inspection, trachea midline, No lymphadenopathy, No midline deformity and No JVD Lymphatic: No lymphedema Chest Chest: normal inspection of the chest Resp Effort & Inspection: normal respiratory effort, able to speak in complete sentences, no respiratory distress and no use of accessory muscles Auscultation: clear to auscultation bilaterally, no rales, no rhonchi and no wheezes Cardio Rate: regular rate Rhythm: regular rhythm Heart Sounds: no click, no gallops, no murmurs and no rubs Pulses: normal peripheral pulses Neuro General: alert, oriented x3, gait normal and no focal motor deficits Speech: speech normal <Giancarlo Aguirre DO - Last Filed: 06/15/18 20:20> Initial Vital Signs Initial Vital Signs: Vital Signs Temperature 97.3 F L 06/14/18 13:03 Pulse Rate 95 H 06/14/18 13:03 Respiratory Rate 16 06/14/18 13:03 Blood Pressure 100/60 06/14/18 13:03 Pulse Oximetry 97 06/14/18 13:03 MDM - Medical Clearance <GLENIS Aviles - Last Filed: 06/14/18 21:31> Lab Data Result diagrams: 06/14/18 14:12 06/14/18 14:12 Lab Results 06/14/18 06/14/18 06/14/18 Range/Units 12:55 14:12 14:12 WBC 8.5 (4.5-11.0) X10^3/uL RBC 5.05 (4.0-5.2) X10^6/uL Hgb 14.7 (12.0-16.0) g/dL Hct 44.8 (36-46) % MCV 88.6 (80-100) fL MCH 29.2 (26-34) PG MCHC 32.9 (30-36) % RDW 14.3 (11.6-14.8) % Plt Count 594 H (150-400) X10^3/uL Neut % (Auto) 71.4 (50-75) % Lymph % (Auto) 23.1 L (25-40) % [place] % (Auto) 3.6 (3-14) % Eos % (Auto) 0.7 L (2-4) % Baso % (Auto) 1.2 (0-2) % Neut # (Auto) 6100 (6408-1824) /uL Lymph # (Auto) 2000 (4506-9888) /uL [place] # (Auto) 300 (0-900) /uL Eos # (Auto) 100 (0-450) /uL Baso # (Auto) 100 (0-100) /uL Sodium 146 H (137-145) mmol/L Potassium 4.2 (3.4-5.1) mmol/L Chloride 106 (98-107) mmol/L Carbon Dioxide 27 (22-32) mmol/L BUN 6 L (7-17) mg/dL Creatinine 0.60 (0.52-1.04) mg/dL Estimated GFR > 60.0 (>60) mL/min BUN/Creatinine Ratio 10.0 (6-22) Glucose 99 (70-100) mg/dL Calcium 8.8 (8.4-10.2) mg/dL Total Bilirubin 0.3 (0.2-1.3) mg/dL AST 28 (14-36) IU/L ALT 34 (9-52) IU/L Alkaline Phosphatase 57 (38-126) U/L Total Protein 8.8 H (6.3-8.2) g/dL Albumin 4.9 (3.5-5.0) g/dL Globulin 3.9 (1.7-4.1) g/dL Albumin/Globulin Ratio 1.3 (1.0-2.8) Urine Test Negative (Negative) Urine Opiates Screen (Negative) Ur Oxycodone Screen (Negative) Urine Methadone Screen (Negative) Ur Barbiturates Screen (Negative) U Tricyclic Antidepress (Negative) Ur Phencyclidine Scrn (Negative) Ur Amphetamines Screen (Negative) U Methamphetamines Scrn (Negative) Ur MDMA Scrn (Ecstasy) (Negative) U Benzodiazepines Scrn (Negative) Urine Cocaine Screen (Negative) U Marijuana (THC) Screen (Negative) Ethyl Alcohol mg/dL 06/14/18 06/14/18 Range/Units 14:12 14:12 WBC (4.5-11.0) X10^3/uL RBC (4.0-5.2) X10^6/uL Hgb (12.0-16.0) g/dL Hct (36-46) % MCV (80-100) fL MCH (26-34) PG MCHC (30-36) % RDW (11.6-14.8) % Plt Count (150-400) X10^3/uL Neut % (Auto) (50-75) % Lymph % (Auto) (25-40) % [place] % (Auto) (3-14) % Eos % (Auto) (2-4) % Baso % (Auto) (0-2) % Neut # (Auto) (6609-2872) /uL Lymph # (Auto) (2614-2746) /uL [place] # (Auto) (0-900) /uL Eos # (Auto) (0-450) /uL Baso # (Auto) (0-100) /uL Sodium (137-145) mmol/L Potassium (3.4-5.1) mmol/L Chloride (98-107) mmol/L Carbon Dioxide (22-32) mmol/L BUN (7-17) mg/dL Creatinine (0.52-1.04) mg/dL Estimated GFR (>60) mL/min BUN/Creatinine Ratio (6-22) Glucose (70-100) mg/dL Calcium (8.4-10.2) mg/dL Total Bilirubin (0.2-1.3) mg/dL AST (14-36) IU/L ALT (9-52) IU/L Alkaline Phosphatase (38-126) U/L Total Protein (6.3-8.2) g/dL Albumin (3.5-5.0) g/dL Globulin (1.7-4.1) g/dL Albumin/Globulin Ratio (1.0-2.8) Urine Test (Negative) Urine Opiates Screen Negative (Negative) Ur Oxycodone Screen Negative (Negative) Urine Methadone Screen Negative (Negative) Ur Barbiturates Screen Negative (Negative) U Tricyclic Antidepress Negative (Negative) Ur Phencyclidine Scrn Negative (Negative) Ur Amphetamines Screen Negative (Negative) U Methamphetamines Scrn Negative (Negative) Ur MDMA Scrn (Ecstasy) Negative (Negative) U Benzodiazepines Scrn Negative (Negative) Urine Cocaine Screen Negative (Negative) U Marijuana (THC) Screen Positive H (Negative) Ethyl Alcohol 188 mg/dL Urine Dip Bedside Urine Glucose Negative Bedside Urine Bilirubin - Negative Bedside Urine Ketone - Negative Urine Specific [place] 1.010 Bedside Urine Occult Blood - Negative Bedside Urine pH 6.0 Bedside Urine Protein - Negative Bedside Urine Urobilinogen - Negative Bedside Urine Nitrite - Negative Bedside Urine Leukocytes - Negative Esterase Imaging Data CT scan - head: Radiologist's impression: [address] [address] [address] Scan Report Signed Patient: Eri Rizvi AMR#: [id number] : 1975Acct:[id number] Age/Sex: 43 / FDate of Service: 06/14/18 Loc: ED Accession Number: [id number] Procedure: CT head/brain wo con Ordering Provider: Augustin Naranjo PROCEDURE: CT HEAD/BRAIN WO CON INDICATIONS: States has frequent headaches and neck pain TECHNIQUE: Noncontrast 4.5 mm thick angled axial sections acquired from the foramen magnum to the vertex, with coronal and sagittal reformats. For radiation dose reduction, the following was used: automated exposure control, adjustment of mA and/or kV according to patient size. COMPARISON: None. FINDINGS: Image quality: Excellent. CSF spaces: Basal cisterns are patent. No extra-axial fluid collections. Ventricles are normal in size and shape. Brain: No midline shift. No intracranial masses or hemorrhage. Weems-white matter interface is normal. Skull and face: Calvarium and visualized facial bones are intact, without bacon spicious lesions. Sinuses: Visualized sinuses and mastoids are clear. IMPRESSION: No acute intracranial disease process. Dictated by: Lisandra Hernandez MD, PhD on 06/14/2018 at 14:10 Approved by: Lisandra Hernandez MD, PhD on 06/14/2018 at 14:[address] : Radiologist's impression: [address] [address] [address] Scan Report Signed Patient: Eri Rizvi AMR#: [id number] : 1975Acct:[id number] Age/Sex: 43 / FDate of Service: 06/14/18 Loc: ED Accession Number: [id number] Procedure: CT cervical spine wo con Ordering Provider: Augustin Naranjo PROCEDURE: CT CERVICAL SPINE WO CON INDICATIONS: States has frequent headaches and neck pain TECHNIQUE: Noncontrast 3 mm thick sections acquired from the skull base to the T4 level. Sagittal and coronal reformats were then constructed. For radiation dose reduction, the following was used: automated exposure control, adjustment of mA and/or kV according to patient size. COMPARISON: None. FINDINGS: Image quality: Excellent. Bones: No fractures or dislocations. Visualized superior ribs are intact. Mild multilevel degenerative disc disease and facet arthropathy are noted. Soft tissues: Prevertebral soft tissues are normal in thickness. No paravertebral hematomas. No apical pneumothoraces. IMPRESSION: No fracture. No acute osseous lesion. If symptoms and/or clinical suspicion for pathology persists, evaluation with MRI may be helpful for further assessment. Dictated by: Lisandra Hernandez MD, PhD on 06/14/2018 at 14:13 Approved by: Lisandra Hernandez MD, PhD on 06/14/2018 at 14:19 [facility] Narrative Medical decision making narrative: Due to patient's report of family history of due to tumor. CT of the head and neck were obtained and were negative for any acute findings. To fibromyalgia or tension headache.CBC and Chem panel were obtained and were unremarkable. ETOH was at 188. Rapid drug screen shows positive for marijuana no other findings. Patient desires to go home. She presents as being capable of making sound decisions. She has a friend that is coming to pick her up so she will have someone to drive her home and will also have somebody available to keep an eye on her. Follow up with primary care provider. Fibromyalgia medications as prescribed for discomfort. For any worsening symptoms return to the emergency room. <Giancarlo Aguirre, DO - Last Filed: 06/15/18 20:20> Lab Data Lab Results 06/14/18 06/14/18 06/14/18 Range/Units 12:55 14:12 14:12 WBC 8.5 (4.5-11.0) X10^3/uL RBC 5.05 (4.0-5.2) X10^6/uL Hgb 14.7 (12.0-16.0) g/dL Hct 44.8 (36-46) % MCV 88.6 (80-100) fL MCH 29.2 (26-34) PG MCHC 32.9 (30-36) % RDW 14.3 (11.6-14.8) % Plt Count 594 H (150-400) X10^3/uL Neut % (Auto) 71.4 (50-75) % Lymph % (Auto) 23.1 L (25-40) % [place] % (Auto) 3.6 (3-14) % Eos % (Auto) 0.7 L (2-4) % Baso % (Auto) 1.2 (0-2) % Neut # (Auto) 6100 (7406-6698) /uL Lymph # (Auto) 2000 (7223-1688) /uL [place] # (Auto) 300 (0-900) /uL Eos # (Auto) 100 (0-450) /uL Baso # (Auto) 100 (0-100) /uL Sodium 146 H (137-145) mmol/L Potassium 4.2 (3.4-5.1) mmol/L Chloride 106 (98-107) mmol/L Carbon Dioxide 27 (22-32) mmol/L BUN 6 L (7-17) mg/dL Creatinine 0.60 (0.52-1.04) mg/dL Estimated GFR > 60.0 (>60) mL/min BUN/Creatinine Ratio 10.0 (6-22) Glucose 99 (70-100) mg/dL Calcium 8.8 (8.4-10.2) mg/dL Total Bilirubin 0.3 (0.2-1.3) mg/dL AST 28 (14-36) IU/L ALT 34 (9-52) IU/L Alkaline Phosphatase 57 (38-126) U/L Total Protein 8.8 H (6.3-8.2) g/dL Albumin 4.9 (3.5-5.0) g/dL Globulin 3.9 (1.7-4.1) g/dL Albumin/Globulin Ratio 1.3 (1.0-2.8) Urine Test Negative (Negative) Urine Opiates Screen (Negative) Ur Oxycodone Screen (Negative) Urine Methadone Screen (Negative) Ur Barbiturates Screen (Negative) U Tricyclic Antidepress (Negative) Ur Phencyclidine Scrn (Negative) Ur Amphetamines Screen (Negative) U Methamphetamines Scrn (Negative) Ur MDMA Scrn (Ecstasy) (Negative) U Benzodiazepines Scrn (Negative) Urine Cocaine Screen (Negative) U Marijuana (THC) Screen (Negative) Ethyl Alcohol mg/dL 06/14/18 06/14/18 Range/Units 14:12 14:12 WBC (4.5-11.0) X10^3/uL RBC (4.0-5.2) X10^6/uL Hgb (12.0-16.0) g/dL Hct (36-46) % MCV (80-100) fL MCH (26-34) PG MCHC (30-36) % RDW (11.6-14.8) % Plt Count (150-400) X10^3/uL Neut % (Auto) (50-75) % Lymph % (Auto) (25-40) % [place] % (Auto) (3-14) % Eos % (Auto) (2-4) % Baso % (Auto) (0-2) % Neut # (Auto) (7435-1254) /uL Lymph # (Auto) (6345-3273) /uL [place] # (Auto) (0-900) /uL Eos # (Auto) (0-450) /uL Baso # (Auto) (0-100) /uL Sodium (137-145) mmol/L Potassium (3.4-5.1) mmol/L Chloride (98-107) mmol/L Carbon Dioxide (22-32) mmol/L BUN (7-17) mg/dL Creatinine (0.52-1.04) mg/dL Estimated GFR (>60) mL/min BUN/Creatinine Ratio (6-22) Glucose (70-100) mg/dL Calcium (8.4-10.2) mg/dL Total Bilirubin (0.2-1.3) mg/dL AST (14-36) IU/L ALT (9-52) IU/L Alkaline Phosphatase (38-126) U/L Total Protein (6.3-8.2) g/dL Albumin (3.5-5.0) g/dL Globulin (1.7-4.1) g/dL Albumin/Globulin Ratio (1.0-2.8) Urine Test (Negative) Urine Opiates Screen Negative (Negative) Ur Oxycodone Screen Negative (Negative) Urine Methadone Screen Negative (Negative) Ur Barbiturates Screen Negative (Negative) U Tricyclic Antidepress Negative (Negative) Ur Phencyclidine Scrn Negative (Negative) Ur Amphetamines Screen Negative (Negative) U Methamphetamines Scrn Negative (Negative) Ur MDMA Scrn (Ecstasy) Negative (Negative) U Benzodiazepines Scrn Negative (Negative) Urine Cocaine Screen Negative (Negative) U Marijuana (THC) Screen Positive H (Negative) Ethyl Alcohol 188 mg/dL Urine Dip Bedside Urine Glucose Negative Bedside Urine Bilirubin - Negative Bedside Urine Ketone - Negative Urine Specific [place] 1.010 Bedside Urine Occult Blood - Negative Bedside Urine pH 6.0 Bedside Urine Protein - Negative Bedside Urine Urobilinogen - Negative Bedside Urine Nitrite - Negative Bedside Urine Leukocytes - Negative Esterase Discharge Plan Departure Patient Disposition: Home Clinical Impression: Alcohol intoxication Qualifiers: Complication of substance-induced condition: uncomplicated Qualified Code(s): F10.920 - Alcohol use, unspecified with intoxication, uncomplicated Headache Qualifiers: Headache type: tension-type Headache chronicity pattern: acute headache Intractability: not intractable Qualified Code(s): G44.209 - Tension-type he adache, unspecified, not intractable Discharge Date/Time: 06/14/18 16:09 Interventions: ED Discharge Assessment Last Done: 06/14/18 16:08 Instructions: DI for Headache Activity Restrictions/Additional Instructions: CT scan of her head and neck were obtained were negative for any acute findings. Headache/neck pain presents as tension headache or secondary to fibromyalgia. Use her currently prescribed fibromyalgia medications as directed. Follow up with your primary care provider. Gentle range of motion to neck muscles to help keep the muscles use to the neck area. No driving for the next 24 hr due to alcohol intoxication. Follow up with her primary care provider. Return emergency room for any worsening symptoms. Prescriptions: No Action cyclobenzaprine 10 mg tablet 10 mg PO TID PRN (Reason: muscle spasm) Qty: 20 RF: 0 sertraline 100 mg Tablet 100 mg PO DAILY RF: 0 hydroxyzine HCl 25 mg Tablet 25 mg PO Q8H PRN (Reason: Anxiety) RF: 0 pregabalin 150 mg Capsule 150 mg PO DAILY RF: 0 meloxicam [Mobic] 15 mg tablet 15 mg PO DAILY Qty: 20 RF: 0 Referrals: Satish Dong [Primary Care Provider] - <Giancarlo Aguirre DO - Last Filed: 06/15/18 20:20> Cosign ED Attending Ade Attestation: I was available for consultation during this patient's emergency department encounter
== END 2018-06-14 16:09 | disposition home or self-care (01) ==
PROVIDERS: Emergency Provider Nurse Practitioner Family; Family Provider Family Medicine; PCP Family Medicine
DX: F10.920 Alcohol use, unspecified with intoxication, uncomplicated (principal); G44.209 Tension-type headache, unspecified, not intractable
CPT/HCPCS: 36415; 70450; 72125; 80053; 80305; 80320; 81003; 81025; 85025; 99282; 99284

== ENCOUNTER 2018-06-25 12:30 | Outpatient (RCR) | payer MEDICAID, SELFPAY ==
--- NOTE | 2018-05-03 15:00 | PT.OIE ---
Current Diagnoses Other chronic pain (05/03/18) Dorsalgia, unspecified (05/03/18) Past Medical History (Last Updated 04/16/18 @ 12:33 by Carolynn Childress PA-C) Depression with anxiety (Chronic) Fibromyalgia (Chronic) Thrombocytosis (Chronic) Provider Visit Care Team Role Provider Type Satish Dong Attending Provider Non-Staff Specialty: Medical Address: [address] [address], [id number] Email: Physical Therapy Initial Evaluation PT-OP-A Visit Information Start: 04/30/18 07:46 Freq: Status: Active Protocol: Document 05/03/18 11:15 AMB (Rec: 05/03/18 13:02 AMB [email or web address]) Out-Patient Physical Therapy Visit Information Visit Information Visit Type Initial Evaluation Visit Note eval+24 units Visit Start Time 11:15 Visit Stop Time 12:10 Total Visit Minutes 55 Visit Number 1 Evaluation Information Evaluation Date 05/03/18 PT-OP-B Current Condition Start: 04/30/18 07:46 Freq: Status: Active Protocol: Document 05/03/18 11:15 AMB (Rec: 05/03/18 13:02 AMB [email or web address]) Current Condition History of Current Condition Onset Date 2003 Current Complaints upper back pain and L sciatica History of Current Condition 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 Reports worsening radiating left leg pain in the past week. She lives with her 3 kids in a one bedroom apartment, with a flight of stairs to enter. Going up and down stairs increases her pain. Prior Treatments and Tests Previous PT years ago which she reports did not relieve her pain. Treatment Goals Patient/Caregiver Goals Be able to return to some type of work, unsure of what kind of work whe would like to do. Prior Functional Status Baseline Function- Other Pt has been unemployed for years but reports she is not on SSDI Current Functional Impairments (Reported) Functional Limitations- ADL's Pt reports good days and bad. Difficulty standing, walking, sitting for any length of time. Functional Limitations- Recreation/ Pt has started doing yoga 1x/ Hobbies week Personal Factors Other Personal Factors That May Effect Fibromyalgia, depression, pt Therapy/Recovery in the process of exiting a dysfunctional relationship. PT-OP-C Subjective Start: 04/30/18 07:46 Freq: Status: Active Protocol: Document 05/03/18 11:15 AMB (Rec: 05/03/18 13:02 AMB [email or web address]) Patient Questionnaires Oswestry Low Back Index Oswestry Score 62 Oswestry Impairment 60 to 79% Impaired (Score 60- 79) OP-PT Pain Assessment Location Upper Back Intensity 10 Scale Used Numeric (1 - 10) PT-OP-G Mobility & Gait Start: 04/30/18 07:46 Freq: Status: Active Protocol: Document 05/03/18 11:15 AMB (Rec: 05/03/18 14:30 AMB [email or web address]) OP Gait Assessment Comments Gait Comments Pt with slow careful gait, stiff with trunk rotation. PT-OP-J Posture/Palpation/Skin Start: 04/30/18 07:46 Freq: Status: Active Protocol: Document 05/03/18 11:15 AMB (Rec: 05/03/18 14:30 AMB [email or web address]) Posture Evaluation Comments Posture Comments Standing posture: knee hyperextension bilaterally, pt tends to weightbear more predominantly on her heels, as she had an injury as a child to her forefoot and it was historically painful to weightbear on it but now it is better. Hyperlordosis of lumbar spine in sitting and standing. Shoulder shrug posture, no scapular winging. Palpation Assessment Location One Palpation Details Tenderness with palpation throughout body. Upper trapezius bilaterally tight and hypertonic. Reported worst of pain at T6-7 that radiates laterally. PT-OP-K Range of Motion Start: 04/30/18 07:46 Freq: Status: Active Protocol: Document 05/03/18 11:15 AMB (Rec: 05/03/18 14:30 AMB [email or web address]) Hip Goniometric Range of Motion Hip ROM Limitations Comments Pt hypermobile throughout hips and in general throughout her body. No stretch felt with piriformis stretch until knee touches shoulder. PT-OP-M Strength Start: 04/30/18 07:46 Freq: Status: Active Protocol: Document 05/03/18 11:15 AMB (Rec: 05/03/18 14:30 AMB [email or web address]) Shoulder Strength Shoulder Manual Muscle Testing Left Flexion 4 Good Extension 4+ Good+ Abduction (C5) 4- Good- Right Flexion 4- Good- Extension 4+ Good+ Abduction (C5) 4- Good- Hip Strength Hip Manual Muscle Testing Right Flexion (L2) 4 Good Extension (S1) 4- Good- Abduction 4 Good Left Flexion (L2) 4- Good- Extension (S1) 4- Good- Abduction 4 Good PT-OP-Q Treatments Start: 04/30/18 07:46 Freq: Status: Active Protocol: Document 05/03/18 14:31 AMB (Rec: 05/03/18 14:35 AMB [email or web address]) Therapeutic Exercises Standing Exercises 1 Standing Exercise Name t-band low row Side bilateral Resistance #2 Reps/Minutes 1x10 Comments active standing Manual Therapy Treatment Taping 1 Body Location t-spine Type of Tape Kinesio Tape Comments scapular retraction PT-OP-R Modalities Start: 04/30/18 07:46 Freq: Status: Active Protocol: Document 05/03/18 14:31 AMB (Rec: 05/03/18 14:35 AMB [email or web address]) Electric Stimulation Electric Stimulation Interferential Current (IFC) Body Location t-spine Duration (Minutes) 10 Patient Position Hooklying Combined With Heat/Cold Hot Pack PT-OP-T Assessment and Plan Start: 04/30/18 07:46 Freq: Status: Active Protocol: Document 05/03/18 11:15 AMB (Rec: 05/03/18 14:59 AMB [email or web address]) Physical Therapy Assessment Rehab Potential Rehabilitation Potential Good Evaluation Complexity Number of Personal Factors/Comorbidities 3 or More Number of Body Systems Impaired 3 Clinical Presentation at Evaluation Evolving Impairments Impairments Pain Posture Strength Goals Three Impairment pain management Short Term Goal (STG) Eri will be consistent with a walking program at least 5 days per week. 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 LTG Duration 8 weeks Two Impairment ADLs Short Term Goal (STG) The patient will sleep for 5 hours without being woken due to pain. STG Duration 4 weeks Cooker Loader Goal (LTG) Eri will ascend and descend a flight of stairs without an increase in her baseline pain. LTG Duration 8 weeks One Impairment Strength Short Term Goal (STG) Eri will increase her core and lower extremity strength so that she can perform a squat without an increase her her baseline pain . STG Duration 4 weeks Custodial Goal (LTG) Eri will lift 15# from the floor to chest height with good body mechanics. LTG Duration 8 weeks Assessment Summary Assessment Eri presents to PT with chronic back pain both upper and lower. 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 Fibromyalgia, anxiety, and depression exacerbate these issues. She will benefit from physical therapy to instruct her in active pain management techniques, establish an exercise program that she can be consistent with, and improve her ability to take care of herself and her children without exacerbating her back pain. She is generally hypermobile and weak, with globalized tenderness. Physical Therapy Plan Frequency and Duration Frequency of Treatment 2x/Week Duration of Treatment 8 weeks Plan of Care Start Date 05/03/18 Plan of Care End Date 06/28/18 Therapeutic Interventions Therapeutic Interventions Aquatic Therapy Gait Training Home Exercise Program Joint Mobilizations Manual Therapy Neuromuscular Re-education Self-Care/Home Management Therapeutic Activities Therapeutic Exercises Modalities Electric Stimulation Hot Packs Ultrasound Next Visit Focus/Plan Next Note Type Treatment Note Next Visit Plan Progress core and scapular stabilization. Pain management techniques, gently increasing cardio to avoid flare ups but increase stamina .
--- NOTE | 2018-05-03 15:03 | PT.OPPOC ---
Current Diagnoses Other chronic pain (05/03/18) Dorsalgia, unspecified (05/03/18) Provider Visit Care Team Role Provider Type Satish Dong Attending Provider Non-Staff Specialty: Medical Address: [address] , [place], [address] Email: Plan Of Care PT-OP-T Assessment and Plan Start: 04/30/18 07:46 Freq: Status: Active Protocol: Document 05/03/18 11:15 AMB (Rec: 05/03/18 14:59 AMB [email or web address]) Physical Therapy Assessment Rehab Potential Rehabilitation Potential Good Evaluation Complexity Number of Personal Factors/Comorbidities 3 or More Number of Body Systems Impaired 3 Clinical Presentation at Evaluation Evolving Impairments Impairments Pain Posture Strength Goals Three Impairment pain management Short Term Goal (STG) Eri will be consistent with a walking program at least 5 days per week. STG Duration 4 weeks Maintenance Equipment Operator Goal (LTG) Eri will stand to cook fishing vessel for 1 hour without an increase in her baseline pain. LTG Duration 8 weeks Two Impairment ADLs Short Term Goal (STG) The patient will sleep for 5 hours without being woken due to pain. STG Duration 4 weeks Mcfp Goal (LTG) Eri will ascend and descend a flight of stairs without an increase in her baseline pain. LTG Duration 8 weeks One Impairment Strength Short Term Goal (STG) Eri will increase her core and lower extremity strength so that she can perform a squat without an increase her her baseline pain . STG Duration 4 weeks Maintenance Equipment Operator Goal (LTG) Eri will lift 15# from the floor to chest height with good body mechanics. LTG Duration 8 weeks Assessment Summary Assessment Eri presents to PT with chronic back pain both upper and lower. 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 Fibromyalgia, anxiety, and depression exacerbate these issues. She will benefit from physical therapy to instruct her in active pain management techniques, establish an exercise program that she can be consistent with, and improve her ability to take care of herself and her children without exacerbating her back pain. She is generally hypermobile and weak, with globalized tenderness. Physical Therapy Plan Frequency and Duration Frequency of Treatment 2x/Week Duration of Treatment 8 weeks Plan of Care Start Date 05/03/18 Plan of Care End Date 06/28/18 Therapeutic Interventions Therapeutic Interventions Aquatic Therapy Gait Training Home Exercise Program Joint Mobilizations Manual Therapy Neuromuscular Re-education Self-Care/Home Management Therapeutic Activities Therapeutic Exercises Modalities Electric Stimulation Hot Packs Ultrasound Next Visit Focus/Plan Next Note Type Treatment Note Next Visit Plan Progress core and scapular stabilization. Pain management techniques, gently increasing cardio to avoid flare ups but increase stamina . Plan of Care Dates Plan of Care Start Date 05/03/18 Plan of Care End Date 06/28/18 Please Sign and Return: I have reviewed this Plan of Care and certify that the skilled therapy services above are required to meet the patient?s needs. Physician Signature Date Printed Name and Credentials Clinical Instructor Signature Printed Name and Credentials
--- NOTE | 2018-05-11 11:52 | PT.OTN ---
Current Diagnoses Other chronic pain (05/11/18) Dorsalgia, unspecified (05/11/18) Physical Therapy Treatment Note PT-OP-A Visit Information Start: 04/30/18 07:46 Freq: Status: Active Protocol: Document 05/11/18 11:43 SA (Rec: 05/11/18 11:52 SA [email or web address]) Out-Patient Physical Therapy Visit Information Visit Information Visit Type Treatment Note Visit Start Time 10:30 Visit Stop Time 11:17 Total Visit Minutes 47 Visit Number 2 PT-OP-B Current Condition Start: 04/30/18 07:46 Freq: Status: Active Protocol: Document 05/03/18 11:15 AMB (Rec: 05/03/18 13:02 AMB [email or web address]) Current Condition History of Current Condition Onset Date 2003 Current Complaints upper back pain and L sciatica History of Current Condition 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 Reports worsening radiating left leg pain in the past week. She lives with her 3 kids in a one bedroom apartment, with a flight of stairs to enter. Going up and down stairs increases her pain. Prior Treatments and Tests Previous PT years ago which she reports did not relieve her pain. Treatment Goals Patient/Caregiver Goals Be able to return to some type of work, unsure of what kind of work whe would like to do. Prior Functional Status Baseline Function- Other Pt has been unemployed for years but reports she is not on SSDI Current Functional Impairments (Reported) Functional Limitations- ADL's Pt reports good days and bad. Difficulty standing, walking, sitting for any length of time. Functional Limitations- Recreation/ Pt has started doing yoga 1x/ Hobbies week Personal Factors Other Personal Factors That May Effect Fibromyalgia, depression, pt Therapy/Recovery in the process of exiting a dysfunctional relationship. PT-OP-C Subjective Start: 04/30/18 07:46 Freq: Status: Active Protocol: Document 05/11/18 11:43 SA (Rec: 05/11/18 11:52 SA [email or web address]) OP-PT Subjective Patient Comments Patient Comments Pt reports that she has had a lot of stress and had some neckk pain and [place] that she went to ER for, but ended up not seeking treatment and wne for a run instead. Stated that running helped and hopes to begin an exercise routine to help deal with stress and pain . PT-OP-G Mobility & Gait Start: 04/30/18 07:46 Freq: Status: Active Protocol: Document 05/03/18 11:15 AMB (Rec: 05/03/18 14:30 AMB [email or web address]) OP Gait Assessment Comments Gait Comments Pt with slow careful gait, stiff with trunk rotation. PT-OP-J Posture/Palpation/Skin Start: 04/30/18 07:46 Freq: Status: Active Protocol: Document 05/03/18 11:15 AMB (Rec: 05/03/18 14:30 AMB [email or web address]) Posture Evaluation Comments Posture Comments Standing posture: knee hyperextension bilaterally, pt tends to weightbear more predominantly on her heels, as she had an injury as a child to her forefoot and it was historically painful to weightbear on it but now it is better. Hyperlordosis of lumbar spine in sitting and standing. Shoulder shrug posture, no scapular winging. Palpation Assessment Location One Palpation Details Tenderness with palpation throughout body. Upper trapezius bilaterally tight and hypertonic. Reported worst of pain at T6-7 that radiates laterally. PT-OP-K Range of Motion Start: 04/30/18 07:46 Freq: Status: Active Protocol: Document 05/03/18 11:15 AMB (Rec: 05/03/18 14:30 AMB [email or web address]) Hip Goniometric Range of Motion Hip ROM Limitations Comments Pt hypermobile throughout hips and in general throughout her body. No stretch felt with piriformis stretch until knee touches shoulder. PT-OP-M Strength Start: 04/30/18 07:46 Freq: Status: Active Protocol: Document 05/03/18 11:15 AMB (Rec: 05/03/18 14:30 AMB [email or web address]) Shoulder Strength Shoulder Manual Muscle Testing Left Flexion 4 Good Extension 4+ Good+ Abduction (C5) 4- Good- Right Flexion 4- Good- Extension 4+ Good+ Abduction (C5) 4- Good- Hip Strength Hip Manual Muscle Testing Right Flexion (L2) 4 Good Extension (S1) 4- Good- Abduction 4 Good Left Flexion (L2) 4- Good- Extension (S1) 4- Good- Abduction 4 Good PT-OP-Q Treatments Start: 04/30/18 07:46 Freq: Status: Active Protocol: Document 05/11/18 11:43 SA (Rec: 05/11/18 11:52 [email or web address]) Cardio Equipment Recumbent Elliptical (Biodex) Duration (Minutes) 6 Resistance 4 Therapeutic Exercises Supine Exercises Isometric abdominal/SL press Side bilateral Reps/Minutes 10 x 5 each Bridging with PT ball Side bilateral Equipment Used Red PT ball Reps/Minutes 20x Comments cues for slow controlled movement Pelvic tilts Reps/Minutes 15 Comments tactile cues Standing Exercises 1 Standing Exercise Name t-band low row Side bilateral Resistance #2 Reps/Minutes 2 x 10 Comments active standing Manual Therapy Treatment Taping 1 Body Location t-spine Type of Tape Kinesio Tape Comments scapular retraction PT-OP-R Modalities Start: 04/30/18 07:46 Freq: Status: Active Protocol: Document 05/11/18 11:43 (Rec: 05/11/18 11:52 [email or web address]) Electric Stimulation Electric Stimulation Interferential Current (IFC) Body Location t-spine Duration (Minutes) 15 Patient Position Hooklying Combined With Heat/Cold Hot Pack PT-OP-T Assessment and Plan Start: 04/30/18 07:46 Freq: Status: Active Protocol: Document 05/11/18 11:43 (Rec: 05/11/18 11:52 [email or web address]) Physical Therapy Assessment Assessment Summary Assessment Pt stated the tapin helped with postural awareness and was able to keep it on x 4 days, continued with taping, began core stability program and HEP to improve function and decrease symptoms. Physical Therapy Plan Next Visit Focus/Plan Next Note Type Treatment Note Next Visit Plan Assess tolerance of new exercises HEP and possible exercise routine that pt hopes to initiate. Progress strengthening as tolerated.
--- NOTE | 2018-05-18 12:48 | PT.OTN ---
Current Diagnoses Other chronic pain (05/18/18) Dorsalgia, unspecified (05/18/18) Physical Therapy Treatment Note PT-OP-A Visit Information Start: 04/30/18 07:46 Freq: Status: Active Protocol: Document 05/18/18 11:00 SAK (Rec: 05/18/18 12:43 SAK [id number]) Out-Patient Physical Therapy Visit Information Visit Information Visit Type Aquatic Treatment Note Visit Start Time 10:55 Visit Stop Time 11:40 Total Visit Minutes 45 Visit Number 3 PT-OP-B Current Condition Start: 04/30/18 07:46 Freq: Status: Active Protocol: Document 05/03/18 11:15 AMB (Rec: 05/03/18 13:02 AMB [email or web address]) Current Condition History of Current Condition Onset Date 2003 Current Complaints upper back pain and L sciatica History of Current Condition 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 Reports worsening radiating left leg pain in the past week. She lives with her 3 kids in a one bedroom apartment, with a flight of stairs to enter. Going up and down stairs increases her pain. Prior Treatments and Tests Previous PT years ago which she reports did not relieve her pain. Treatment Goals Patient/Caregiver Goals Be able to return to some type of work, unsure of what kind of work whe would like to do. Prior Functional Status Baseline Function- Other Pt has been unemployed for years but reports she is not on SSDI Current Functional Impairments (Reported) Functional Limitations- ADL's Pt reports good days and bad. Difficulty standing, walking, sitting for any length of time. Functional Limitations- Recreation/ Pt has started doing yoga 1x/ Hobbies week Personal Factors Other Personal Factors That May Effect Fibromyalgia, depression, pt Therapy/Recovery in the process of exiting a dysfunctional relationship. PT-OP-C Subjective Start: 04/30/18 07:46 Freq: Status: Active Protocol: Document 05/18/18 11:00 SAK (Rec: 05/18/18 12:43 SAK [id number]) OP-PT Subjective Patient Comments Patient Comments Patient reports she is excited to start aquatic therapy today, is hoping to do aquatic exercise or aquatic aerobic class after discharge. PT-OP-G Mobility & Gait Start: 04/30/18 07:46 Freq: Status: Active Protocol: Document 05/03/18 11:15 AMB (Rec: 05/03/18 14:30 AMB [email or web address]) OP Gait Assessment Comments Gait Comments Pt with slow careful gait, stiff with trunk rotation. PT-OP-J Posture/Palpation/Skin Start: 04/30/18 07:46 Freq: Status: Active Protocol: Document 05/03/18 11:15 AMB (Rec: 05/03/18 14:30 AMB [email or web address]) Posture Evaluation Comments Posture Comments Standing posture: knee hyperextension bilaterally, pt tends to weightbear more predominantly on her heels, as she had an injury as a child to her forefoot and it was historically painful to weightbear on it but now it is better. Hyperlordosis of lumbar spine in sitting and standing. Shoulder shrug posture, no scapular winging. Palpation Assessment Location One Palpation Details Tenderness with palpation throughout body. Upper trapezius bilaterally tight and hypertonic. Reported worst of pain at T6-7 that radiates laterally. PT-OP-K Range of Motion Start: 04/30/18 07:46 Freq: Status: Active Protocol: Document 05/03/18 11:15 AMB (Rec: 05/03/18 14:30 AMB [email or web address]) Hip Goniometric Range of Motion Hip ROM Limitations Comments Pt hypermobile throughout hips and in general throughout her body. No stretch felt with piriformis stretch until knee touches shoulder. PT-OP-M Strength Start: 04/30/18 07:46 Freq: Status: Active Protocol: Document 05/03/18 11:15 AMB (Rec: 05/03/18 14:30 AMB [email or web address]) Shoulder Strength Shoulder Manual Muscle Testing Left Flexion 4 Good Extension 4+ Good+ Abduction (C5) 4- Good- Right Flexion 4- Good- Extension 4+ Good+ Abduction (C5) 4- Good- Hip Strength Hip Manual Muscle Testing Right Flexion (L2) 4 Good Extension (S1) 4- Good- Abduction 4 Good Left Flexion (L2) 4- Good- Extension (S1) 4- Good- Abduction 4 Good PT-OP-Q Treatments Start: 04/30/18 07:46 Freq: Status: Active Protocol: Document 05/11/18 11:43 SA (Rec: 05/11/18 11:52 SA [email or web address]) Cardio Equipment Recumbent Elliptical (Biodex) Duration (Minutes) 6 Resistance 4 Therapeutic Exercises Supine Exercises Isometric abdominal/SL press Side bilateral Reps/Minutes 10 x 5 each Bridging with PT ball Side bilateral Equipment Used Red PT ball Reps/Minutes 20x Comments cues for slow controlled movement Pelvic tilts Reps/Minutes 15 Comments tactile cues Standing Exercises 1 Standing Exercise Name t-band low row Side bilateral Resistance #2 Reps/Minutes 2 x 10 Comments active standing Manual Therapy Treatment Taping 1 Body Location t-spine Type of Tape Kinesio Tape Comments scapular retraction PT-OP-R Modalities Start: 04/30/18 07:46 Freq: Status: Active Protocol: Document 05/11/18 11:43 SA (Rec: 05/11/18 11:52 SA [email or web address]) Electric Stimulation Electric Stimulation Interferential Current (IFC) Body Location t-spine Duration (Minutes) 15 Patient Position Hooklying Combined With Heat/Cold Hot Pack PT-OP-S Aquatic Treatment Start: 05/18/18 12:44 Freq: Status: Active Protocol: Document 05/18/18 11:00 [facility] (Rec: 05/18/18 12:48 [facility] [id number]) Aquatics Treatment Pool Entry/Exit Pool Entry/Exit Method Stairs Assistance Independent Water Walking june, kick Water Level Chest Level Level of Assistance Verbal Cues fwd,bck,side Water Level Chest Level Level of Assistance Verbal Cues Lower Extremity Stretches DKTC, SKTC Body Position Standing Water Level [place] Comments wall Upper Extremity Exercises shoulder hor ab/ad, flex/ext Water Level Chest Level Comments emphasis on DLS [place] Activities [place] Activities Bicycle Backwards [place] Running Sit Kicks Equipment flotation belt (L) Duration 20 Comments 8 rounds 30:30 intervals Aquatic Yoga Aquatic Yoga Downward Dog (Wall) Duration (Minutes) 2 PT-OP-T Assessment and Plan Start: 04/30/18 07:46 Freq: Status: Active Protocol: Document 05/18/18 11:00 SAK (Rec: 05/18/18 12:43 SAK [id number]) Physical Therapy Assessment Goals Three Impairment pain management Short Term Goal (STG) Eri will be consistent with a walking program at least 5 days per week. 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 LTG Duration 8 weeks Two Impairment ADLs Short Term Goal (STG) The patient will sleep for 5 hours without being woken due to pain. STG Duration 4 weeks Inpatient Services Rn Goal (LTG) Eri will ascend and descend a flight of stairs without an increase in her baseline pain. LTG Duration 8 weeks One Impairment Strength Short Term Goal (STG) Eri will increase her core and lower extremity strength so that she can perform a squat without an increase her her baseline pain . STG Duration 4 weeks Correction Goal (LTG) Eri will lift 15# from the floor to chest height with good body mechanics. LTG Duration 8 weeks Assessment Summary Assessment Tolerated aquatic exercises well with occasional rest and cues for postural alignment and core stabilization. Physical Therapy Plan Frequency and Duration Frequency of Treatment 2x/Week Duration of Treatment 8 weeks Plan of Care Start Date 05/03/18 Plan of Care End Date 06/28/18 Therapeutic Interventions Therapeutic Interventions Aquatic Therapy Gait Training Home Exercise Program Joint Mobilizations Manual Therapy Neuromuscular Re-education Self-Care/Home Management Therapeutic Activities Therapeutic Exercises Modalities Electric Stimulation Hot Packs Ultrasound Next Visit Focus/Plan Next Note Type Treatment Note Next Visit Plan Progress land and aquatic exercise as tolerated.
--- NOTE | 2018-05-28 18:03 | PT.OTN ---
Current Diagnoses Other chronic pain (05/28/18) Dorsalgia, unspecified (05/28/18) Physical Therapy Treatment Note PT-OP-A Visit Information Start: 04/30/18 07:46 Freq: Status: Active Protocol: Document 05/28/18 12:30 SAK (Rec: 05/28/18 18:02 SAK [id number]) Out-Patient Physical Therapy Visit Information Visit Information Visit Type Aquatic Treatment Note Visit Start Time 12:30 Visit Stop Time 13:15 Total Visit Minutes 45 Visit Number 4 PT-OP-B Current Condition Start: 04/30/18 07:46 Freq: Status: Active Protocol: Document 05/03/18 11:15 AMB (Rec: 05/03/18 13:02 AMB [email or web address]) Current Condition History of Current Condition Onset Date 2003 Current Complaints upper back pain and L sciatica History of Current Condition 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 Reports worsening radiating left leg pain in the past week. She lives with her 3 kids in a one bedroom apartment, with a flight of stairs to enter. Going up and down stairs increases her pain. Prior Treatments and Tests Previous PT years ago which she reports did not relieve her pain. Treatment Goals Patient/Caregiver Goals Be able to return to some type of work, unsure of what kind of work whe would like to do. Prior Functional Status Baseline Function- Other Pt has been unemployed for years but reports she is not on SSDI Current Functional Impairments (Reported) Functional Limitations- ADL's Pt reports good days and bad. Difficulty standing, walking, sitting for any length of time. Functional Limitations- Recreation/ Pt has started doing yoga 1x/ Hobbies week Personal Factors Other Personal Factors That May Effect Fibromyalgia, depression, pt Therapy/Recovery in the process of exiting a dysfunctional relationship. PT-OP-C Subjective Start: 04/30/18 07:46 Freq: Status: Active Protocol: Document 05/28/18 12:30 SAK (Rec: 05/28/18 18:02 SAK [id number]) OP-PT Subjective Patient Comments Patient Comments States she felt aquatic therapy very helpful for her. Is hopeful to have her caregiver trained to assist her with aquatic exercise after discharge from PT. PT-OP-G Mobility & Gait Start: 04/30/18 07:46 Freq: Status: Active Protocol: Document 05/03/18 11:15 AMB (Rec: 05/03/18 14:30 AMB [email or web address]) OP Gait Assessment Comments Gait Comments Pt with slow careful gait, stiff with trunk rotation. PT-OP-J Posture/Palpation/Skin Start: 04/30/18 07:46 Freq: Status: Active Protocol: Document 05/03/18 11:15 AMB (Rec: 05/03/18 14:30 AMB [email or web address]) Posture Evaluation Comments Posture Comments Standing posture: knee hyperextension bilaterally, pt tends to weightbear more predominantly on her heels, as she had an injury as a child to her forefoot and it was historically painful to weightbear on it but now it is better. Hyperlordosis of lumbar spine in sitting and standing. Shoulder shrug posture, no scapular winging. Palpation Assessment Location One Palpation Details Tenderness with palpation throughout body. Upper trapezius bilaterally tight and hypertonic. Reported worst of pain at T6-7 that radiates laterally. PT-OP-K Range of Motion Start: 04/30/18 07:46 Freq: Status: Active Protocol: Document 05/03/18 11:15 AMB (Rec: 05/03/18 14:30 AMB [email or web address]) Hip Goniometric Range of Motion Hip ROM Limitations Comments Pt hypermobile throughout hips and in general throughout her body. No stretch felt with piriformis stretch until knee touches shoulder. PT-OP-M Strength Start: 04/30/18 07:46 Freq: Status: Active Protocol: Document 05/03/18 11:15 AMB (Rec: 05/03/18 14:30 AMB [email or web address]) Shoulder Strength Shoulder Manual Muscle Testing Left Flexion 4 Good Extension 4+ Good+ Abduction (C5) 4- Good- Right Flexion 4- Good- Extension 4+ Good+ Abduction (C5) 4- Good- Hip Strength Hip Manual Muscle Testing Right Flexion (L2) 4 Good Extension (S1) 4- Good- Abduction 4 Good Left Flexion (L2) 4- Good- Extension (S1) 4- Good- Abduction 4 Good PT-OP-Q Treatments Start: 04/30/18 07:46 Freq: Status: Active Protocol: Document 05/11/18 11:43 SA (Rec: 05/11/18 11:52 SA [email or web address]) Cardio Equipment Recumbent Elliptical (Biodex) Duration (Minutes) 6 Resistance 4 Therapeutic Exercises Supine Exercises Isometric abdominal/SL press Side bilateral Reps/Minutes 10 x 5 each Bridging with PT ball Side bilateral Equipment Used Red PT ball Reps/Minutes 20x Comments cues for slow controlled movement Pelvic tilts Reps/Minutes 15 Comments tactile cues Standing Exercises 1 Standing Exercise Name t-band low row Side bilateral Resistance #2 Reps/Minutes 2 x 10 Comments active standing Manual Therapy Treatment Taping 1 Body Location t-spine Type of Tape Kinesio Tape Comments scapular retraction PT-OP-R Modalities Start: 04/30/18 07:46 Freq: Status: Active Protocol: Document 05/11/18 11:43 SA (Rec: 05/11/18 11:52 SA [email or web address]) Electric Stimulation Electric Stimulation Interferential Current (IFC) Body Location t-spine Duration (Minutes) 15 Patient Position Hooklying Combined With Heat/Cold Hot Pack PT-OP-S Aquatic Treatment Start: 05/18/18 12:44 Freq: Status: Active Protocol: Document 05/28/18 12:30 SAK (Rec: 05/28/18 18:02 SAK [id number]) Aquatics Treatment Pool Entry/Exit Pool Entry/Exit Method Stairs Assistance Independent Water Walking june, kick Water Level Chest Level Level of Assistance Verbal Cues fwd,bck,side Water Level Chest Level Level of Assistance Verbal Cues Lower Extremity Stretches DKTC, SKTC Body Position Standing Water Level [place] Comments wall Upper Extremity Exercises shoulder hor ab/ad, flex/ext Water Level Chest Level Comments emphasis on DLS [place] Activities [place] Activities Bicycle Backwards [place] Running Sit Kicks Other Activities deep water DLS Equipment flotation belt (M), tether, barbells Duration 20 Comments 10 rounds 30:30 intervals Aquatic Yoga Aquatic Yoga Downward Dog (Wall) Duration (Minutes) 2 PT-OP-T Assessment and Plan Start: 04/30/18 07:46 Freq: Status: Active Protocol: Document 05/28/18 12:30 SAK (Rec: 05/28/18 18:02 SAK [id number]) Physical Therapy Assessment Goals Three Impairment pain management Short Term Goal (STG) Eri will be consistent with a walking program at least 5 days per week. STG Duration 4 weeks Griddle Attendant Goal (LTG) Eri will stand to digester cook for 1 hour without an increase in her baseline pain. LTG Duration 8 weeks Two Impairment ADLs Short Term Goal (STG) The patient will sleep for 5 hours without being woken due to pain. STG Duration 4 weeks [facility]fp Goal (LTG) Eri will ascend and descend a flight of stairs without an increase in her baseline pain. LTG Duration 8 weeks One Impairment Strength Short Term Goal (STG) Eri will increase her core and lower extremity strength so that she can perform a squat without an increase her her baseline pain . STG Duration 4 weeks Mcfp Goal (LTG) Eri will lift 15# from the floor to chest height with good body mechanics. LTG Duration 8 weeks Assessment Summary Assessment Good tolerance for progression of aquatic exercises. Frequent cues for postural alignment and core stabilization with all activities. Physical Therapy Plan Frequency and Duration Frequency of Treatment 2x/Week Duration of Treatment 8 weeks Plan of Care Start Date 05/03/18 Plan of Care End Date 06/28/18 Therapeutic Interventions Therapeutic Interventions Aquatic Therapy Gait Training Home Exercise Program Joint Mobilizations Manual Therapy Neuromuscular Re-education Self-Care/Home Management Therapeutic Activities Therapeutic Exercises Modalities Electric Stimulation Hot Packs Ultrasound Next Visit Focus/Plan Next Note Type Treatment Note Next Visit Plan Progress land and aquatic exercise as tolerated.
--- NOTE | 2018-06-26 15:36 | PT.OTN ---
Addendum entered and electronically signed by Jane Jonas, PT 06/27/18 08:51: Original Note: Current Diagnoses Other chronic pain (06/25/18) Dorsalgia, unspecified (06/25/18) Physical Therapy Treatment Note PT-OP-A Visit Information Start: 04/30/18 07:46 Freq: Status: Active Protocol: Document 06/26/18 12:30 CLB (Rec: 06/26/18 15:36 CLB [id number]) Out-Patient Physical Therapy Visit Information Visit Information Visit Type Progress Note Visit Start Time 12:30 Visit Stop Time 13:30 Total Visit Minutes 50 Visit Number 6 Number of MANAGER SHIPPING Visits 1 PT-OP-B Current Condition Start: 04/30/18 07:46 Freq: Status: Active Protocol: Document 05/03/18 11:15 AMB (Rec: 05/03/18 13:02 AMB [email or web address]) Current Condition History of Current Condition Onset Date 2003 Current Complaints upper back pain and L sciatica History of Current Condition 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 Reports worsening radiating left leg pain in the past week. She lives with her 3 kids in a one bedroom apartment, with a flight of stairs to enter. Going up and down stairs increases her pain. Prior Treatments and Tests Previous PT years ago which she reports did not relieve her pain. Treatment Goals Patient/Caregiver Goals Be able to return to some type of work, unsure of what kind of work whe would like to do. Prior Functional Status Baseline Function- Other Pt has been unemployed for years but reports she is not on SSDI Current Functional Impairments (Reported) Functional Limitations- ADL's Pt reports good days and bad. Difficulty standing, walking, sitting for any length of time. Functional Limitations- Recreation/ Pt has started doing yoga 1x/ Hobbies week Personal Factors Other Personal Factors That May Effect Fibromyalgia, depression, pt Therapy/Recovery in the process of exiting a dysfunctional relationship. PT-OP-C Subjective Start: 04/30/18 07:46 Freq: Status: Active Protocol: Document 06/26/18 12:30 CLB (Rec: 06/26/18 15:36 CLB [id number]) OP-PT Subjective Patient Comments Patient Comments Reports increased tightness and pain in neck and shoulders due to doing yard work on Monday. PT-OP-G Mobility & Gait Start: 04/30/18 07:46 Freq: Status: Active Protocol: Document 05/03/18 11:15 AMB (Rec: 05/03/18 14:30 AMB [email or web address]) OP Gait Assessment Comments Gait Comments Pt with slow careful gait, stiff with trunk rotation. PT-OP-J Posture/Palpation/Skin Start: 04/30/18 07:46 Freq: Status: Active Protocol: Document 05/03/18 11:15 AMB (Rec: 05/03/18 14:30 AMB [email or web address]) Posture Evaluation Comments Posture Comments Standing posture: knee hyperextension bilaterally, pt tends to weightbear more predominantly on her heels, as she had an injury as a child to her forefoot and it was historically painful to weightbear on it but now it is better. Hyperlordosis of lumbar spine in sitting and standing. Shoulder shrug posture, no scapular winging. Palpation Assessment Location One Palpation Details Tenderness with palpation throughout body. Upper trapezius bilaterally tight and hypertonic. Reported worst of pain at T6-7 that radiates laterally. PT-OP-K Range of Motion Start: 04/30/18 07:46 Freq: Status: Active Protocol: Document 05/03/18 11:15 AMB (Rec: 05/03/18 14:30 AMB [email or web address]) Hip Goniometric Range of Motion Hip ROM Limitations Comments Pt hypermobile throughout hips and in general throughout her body. No stretch felt with piriformis stretch until knee touches shoulder. PT-OP-M Strength Start: 04/30/18 07:46 Freq: Status: Active Protocol: Document 05/03/18 11:15 AMB (Rec: 05/03/18 14:30 AMB [email or web address]) Shoulder Strength Shoulder Manual Muscle Testing Left Flexion 4 Good Extension 4+ Good+ Abduction (C5) 4- Good- Right Flexion 4- Good- Extension 4+ Good+ Abduction (C5) 4- Good- Hip Strength Hip Manual Muscle Testing Right Flexion (L2) 4 Good Extension (S1) 4- Good- Abduction 4 Good Left Flexion (L2) 4- Good- Extension (S1) 4- Good- Abduction 4 Good PT-OP-Q Treatments Start: 04/30/18 07:46 Freq: Status: Active Protocol: Document 05/11/18 11:43 SA (Rec: 05/11/18 11:52 SA [email or web address]) Cardio Equipment Recumbent Elliptical (Biodex) Duration (Minutes) 6 Resistance 4 Therapeutic Exercises Supine Exercises Isometric abdominal/SL press Side bilateral Reps/Minutes 10 x 5 each Bridging with PT ball Side bilateral Equipment Used Red PT ball Reps/Minutes 20x Comments cues for slow controlled movement Pelvic tilts Reps/Minutes 15 Comments tactile cues Standing Exercises 1 Standing Exercise Name t-band low row Side bilateral Resistance #2 Reps/Minutes 2 x 10 Comments active standing Manual Therapy Treatment Taping 1 Body Location t-spine Type of Tape Kinesio Tape Comments scapular retraction PT-OP-R Modalities Start: 04/30/18 07:46 Freq: Status: Active Protocol: Document 05/11/18 11:43 SA (Rec: 05/11/18 11:52 SA [email or web address]) Electric Stimulation Electric Stimulation Interferential Current (IFC) Body Location t-spine Duration (Minutes) 15 Patient Position Hooklying Combined With Heat/Cold Hot Pack PT-OP-S Aquatic Treatment Start: 05/18/18 12:44 Freq: Status: Active Protocol: Document 06/26/18 12:30 CLB (Rec: 06/26/18 15:36 CLB [id number]) Aquatics Treatment Pool Entry/Exit Pool Entry/Exit Method Stairs Assistance Independent Water Walking walk with UE's on noodle behind Water Level Chest Level Walking Equipment Small Noodle Comments for anterior chest stretching june, kick Water Level Chest Level Level of Assistance Verbal Cues fwd,bck,side Water Level Chest Level Level of Assistance Verbal Cues Lower Extremity Stretches DKTC, SKTC Body Position Standing Water Level [place] Comments wall Upper Extremity Exercises shoulder hor ab/ad, flex/ext Water Level Chest Level Comments emphasis on DLS Spinal Exercises cervical stretches: UT, levator scap Reps/Duration 2x [place] Activities [place] Activities Cross Country Running Other Activities deep water DLS Equipment flotation belt (L) Duration 10 Manual Techniques Aquatic Massage supine with yellow neck float, LE floats: to c-spine, UT, rhomboids PT-OP-T Assessment and Plan Start: 04/30/18 07:46 Freq: Status: Active Protocol: Document 06/26/18 12:30 CLB (Rec: 06/26/18 15:36 CLB [id number]) Physical Therapy Assessment Goals Three Impairment pain management Short Term Goal (STG) Eri will be consistent with a walking program at least 5 days per week. STG Duration 4 weeks Detention Goal (LTG) Eri will stand to cookie padder for 1 hour without an increase in her baseline pain. LTG Duration 8 weeks Two Impairment ADLs Short Term Goal (STG) The patient will sleep for 5 hours without being woken due to pain. STG Duration 4 weeks Child Psychologist Goal (LTG) Eri will ascend and descend a flight of stairs without an increase in her baseline pain. LTG Duration 8 weeks One Impairment Strength Short Term Goal (STG) Eri will increase her core and lower extremity strength so that she can perform a squat without an increase her her baseline pain . STG Duration 4 weeks Detention Goal (LTG) Eri will lift 15# from the floor to chest height with good body mechanics. LTG Duration 8 weeks Assessment Summary Assessment Pt continues to require cues for postural alignment and core stabilization. Physical Therapy Plan Frequency and Duration Frequency of Treatment 2x/Week Duration of Treatment 8 weeks Plan of Care Start Date 05/03/18 Plan of Care End Date 06/28/18 Next Visit Focus/Plan Next Note Type Treatment Note Next Visit Plan Progress land and aquatic exercise as tolerated to decrease patient's pain and improve her functional activity tolerance.
--- NOTE | 2018-06-27 10:30 | PT.OTRE ---
Current Diagnoses Other chronic pain (06/25/18) Dorsalgia, unspecified (06/25/18) Past Medical History (Last Reviewed 06/14/18 @ 15:55 by GLENIS Aviles) Depression with anxiety (Chronic) Fibromyalgia (Chronic) Thrombocytosis (Chronic) Provider Visit Care Team Role Provider Type Satish Dong Attending Provider Non-Staff Specialty: Medical Address: [address] [place] [address], [place], [address] Email: Physical Therapy Re-Evaluation PT-OP-A Visit Information Start: 04/30/18 07:46 Freq: Status: Active Protocol: Document 06/26/18 12:30 CLB (Rec: 06/26/18 15:36 CLB [id number]) Out-Patient Physical Therapy Visit Information Visit Information Visit Type Progress Note Visit Start Time 12:30 Visit Stop Time 13:30 Total Visit Minutes 50 Visit Number 6 Number of AIR CONDITIONING INSTALLER Visits 1 PT-OP-B Current Condition Start: 04/30/18 07:46 Freq: Status: Active Protocol: Document 05/03/18 11:15 AMB (Rec: 05/03/18 13:02 AMB [email or web address]) Current Condition History of Current Condition Onset Date 2003 Current Complaints upper back pain and L sciatica History of Current Condition 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 Reports worsening radiating left leg pain in the past week. She lives with her 3 kids in a one bedroom apartment, with a flight of stairs to enter. Going up and down stairs increases her pain. Prior Treatments and Tests Previous PT years ago which she reports did not relieve her pain. Treatment Goals Patient/Caregiver Goals Be able to return to some type of work, unsure of what kind of work whe would like to do. Prior Functional Status Baseline Function- Other Pt has been unemployed for years but reports she is not on SSDI Current Functional Impairments (Reported) Functional Limitations- ADL's Pt reports good days and bad. Difficulty standing, walking, sitting for any length of time. Functional Limitations- Recreation/ Pt has started doing yoga 1x/ Hobbies week Personal Factors Other Personal Factors That May Effect Fibromyalgia, depression, pt Therapy/Recovery in the process of exiting a dysfunctional relationship. PT-OP-C Subjective Start: 04/30/18 07:46 Freq: Status: Active Protocol: Document 06/26/18 12:30 CLB (Rec: 06/26/18 15:36 CLB [id number]) OP-PT Subjective Patient Comments Patient Comments Reports increased tightness and pain in neck and shoulders due to doing yard work on Monday. PT-OP-G Mobility & Gait Start: 04/30/18 07:46 Freq: Status: Active Protocol: Document 05/03/18 11:15 AMB (Rec: 05/03/18 14:30 AMB [email or web address]) OP Gait Assessment Comments Gait Comments Pt with slow careful gait, stiff with trunk rotation. PT-OP-J Posture/Palpation/Skin Start: 04/30/18 07:46 Freq: Status: Active Protocol: Document 05/03/18 11:15 AMB (Rec: 05/03/18 14:30 AMB [email or web address]) Posture Evaluation Comments Posture Comments Standing posture: knee hyperextension bilaterally, pt tends to weightbear more predominantly on her heels, as she had an injury as a child to her forefoot and it was historically painful to weightbear on it but now it is better. Hyperlordosis of lumbar spine in sitting and standing. Shoulder shrug posture, no scapular winging. Palpation Assessment Location One Palpation Details Tenderness with palpation throughout body. Upper trapezius bilaterally tight and hypertonic. Reported worst of pain at T6-7 that radiates laterally. PT-OP-K Range of Motion Start: 04/30/18 07:46 Freq: Status: Active Protocol: Document 05/03/18 11:15 AMB (Rec: 05/03/18 14:30 AMB [email or web address]) Hip Goniometric Range of Motion Hip ROM Limitations Comments Pt hypermobile throughout hips and in general throughout her body. No stretch felt with piriformis stretch until knee touches shoulder. PT-OP-M Strength Start: 04/30/18 07:46 Freq: Status: Active Protocol: Document 05/03/18 11:15 AMB (Rec: 05/03/18 14:30 AMB [email or web address]) Shoulder Strength Shoulder Manual Muscle Testing Left Flexion 4 Good Extension 4+ Good+ Abduction (C5) 4- Good- Right Flexion 4- Good- Extension 4+ Good+ Abduction (C5) 4- Good- Hip Strength Hip Manual Muscle Testing Right Flexion (L2) 4 Good Extension (S1) 4- Good- Abduction 4 Good Left Flexion (L2) 4- Good- Extension (S1) 4- Good- Abduction 4 Good PT-OP-Q Treatments Start: 04/30/18 07:46 Freq: Status: Active Protocol: Document 05/11/18 11:43 SA (Rec: 05/11/18 11:52 SA [email or web address]) Cardio Equipment Recumbent Elliptical (Biodex) Duration (Minutes) 6 Resistance 4 Therapeutic Exercises Supine Exercises Isometric abdominal/SL press Side bilateral Reps/Minutes 10 x 5 each Bridging with PT ball Side bilateral Equipment Used Red PT ball Reps/Minutes 20x Comments cues for slow controlled movement Pelvic tilts Reps/Minutes 15 Comments tactile cues Standing Exercises 1 Standing Exercise Name t-band low row Side bilateral Resistance #2 Reps/Minutes 2 x 10 Comments active standing Manual Therapy Treatment Taping 1 Body Location t-spine Type of Tape Kinesio Tape Comments scapular retraction PT-OP-R Modalities Start: 04/30/18 07:46 Freq: Status: Active Protocol: Document 05/11/18 11:43 SA (Rec: 05/11/18 11:52 SA [email or web address]) Electric Stimulation Electric Stimulation Interferential Current (IFC) Body Location t-spine Duration (Minutes) 15 Patient Position Hooklying Combined With Heat/Cold Hot Pack PT-OP-T Assessment and Plan Start: 04/30/18 07:46 Freq: Status: Active Protocol: Document 06/26/18 12:30 CLB (Rec: 06/26/18 15:36 CLB [id number]) Physical Therapy Assessment Goals Three Impairment pain management Short Term Goal (STG) Eri will be consistent with a walking program at least 5 days per week. STG Duration 4 weeks Label Pinker Goal (LTG) Eri will stand to cook relief for 1 hour without an increase in her baseline pain. LTG Duration 8 weeks Two Impairment ADLs Short Term Goal (STG) The patient will sleep for 5 hours without being woken due to pain. STG Duration 4 weeks Long-Term Goal (LTG) Eri will ascend and descend a flight of stairs without an increase in her baseline pain. LTG Duration 8 weeks One Impairment Strength Short Term Goal (STG) Eri will increase her core and lower extremity strength so that she can perform a squat without an increase her her baseline pain . STG Duration 4 weeks Label Pinker Goal (LTG) Eri will lift 15# from the floor to chest height with good body mechanics. LTG Duration 8 weeks Assessment Summary Assessment Pt continues to require cues for postural alignment and core stabilization. Physical Therapy Plan Frequency and Duration Frequency of Treatment 2x/Week Duration of Treatment 8 weeks Plan of Care Start Date 05/03/18 Plan of Care End Date 06/28/18 Next Visit Focus/Plan Next Note Type Treatment Note Next Visit Plan Progress land and aquatic exercise as tolerated to decrease patient's pain and improve her functional activity tolerance.
--- NOTE | 2018-06-27 10:30 | PT.OPPOC ---
Current Diagnoses Other chronic pain (06/25/18) Dorsalgia, unspecified (06/25/18) Provider Visit Care Team Role Provider Type Satish Dong Attending Provider Non-Staff Specialty: Medical Address: [address] , [place], [address] Email: Plan Of Care PT-OP-T Assessment and Plan Start: 04/30/18 07:46 Freq: Status: Active Protocol: Document 06/26/18 12:30 CLB (Rec: 06/26/18 15:36 CLB [id number]) Physical Therapy Assessment Goals Three Impairment pain management Short Term Goal (STG) Eri will be consistent with a walking program at least 5 days per week. STG Duration 4 weeks Fpc Goal (LTG) Eri will stand to cafeteria cook for 1 hour without an increase in her baseline pain. LTG Duration 8 weeks Two Impairment ADLs Short Term Goal (STG) The patient will sleep for 5 hours without being woken due to pain. STG Duration 4 weeks Fpc Goal (LTG) Eri will ascend and descend a flight of stairs without an increase in her baseline pain. LTG Duration 8 weeks One Impairment Strength Short Term Goal (STG) Eri will increase her core and lower extremity strength so that she can perform a squat without an increase her her baseline pain . STG Duration 4 weeks Electronic Transaction Implementer Goal (LTG) Eri will lift 15# from the floor to chest height with good body mechanics. LTG Duration 8 weeks Assessment Summary Assessment Pt continues to require cues for postural alignment and core stabilization. Physical Therapy Plan Frequency and Duration Frequency of Treatment 2x/Week Duration of Treatment 8 weeks Plan of Care Start Date 05/03/18 Plan of Care End Date 06/28/18 Next Visit Focus/Plan Next Note Type Treatment Note Next Visit Plan Progress land and aquatic exercise as tolerated to decrease patient's pain and improve her functional activity tolerance. Plan of Care Dates Plan of Care Start Date 05/03/18 Plan of Care End Date 06/28/18 Please Sign and Return: I have reviewed this Plan of Care and certify that the skilled therapy services above are required to meet the patient?s needs. Physician Signature Date Printed Name and Credentials Clinical Instructor Signature Printed Name and Credentials
--- NOTE | 2018-08-24 14:11 | PT.OPDS ---
Current Diagnoses Other chronic pain (06/25/18) Dorsalgia, unspecified (06/25/18) Provider Visit Care Team Role Provider Type Satish Dong Attending Provider Non-Staff Specialty: Medical Address: [facility] [address] , [place], [address] Email: Visit Number Visit Number 6 Discharge Summary PT-OP-B Current Condition Start: 04/30/18 07:46 Freq: Status: Active Protocol: Document 05/03/18 11:15 AMB (Rec: 05/03/18 13:02 AMB [email or web address]) Current Condition History of Current Condition Onset Date 2003 Current Complaints upper back pain and L sciatica History of Current Condition 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 Reports worsening radiating left leg pain in the past week. She lives with her 3 kids in a one bedroom apartment, with a flight of stairs to enter. Going up and down stairs increases her pain. Prior Treatments and Tests Previous PT years ago which she reports did not relieve her pain. Treatment Goals Patient/Caregiver Goals Be able to return to some type of work, unsure of what kind of work whe would like to do. Prior Functional Status Baseline Function- Other Pt has been unemployed for years but reports she is not on SSDI Current Functional Impairments (Reported) Functional Limitations- ADL's Pt reports good days and bad. Difficulty standing, walking, sitting for any length of time. Functional Limitations- Recreation/ Pt has started doing yoga 1x/ Hobbies week Personal Factors Other Personal Factors That May Effect Fibromyalgia, depression, pt Therapy/Recovery in the process of exiting a dysfunctional relationship. PT-OP-C Subjective Start: 04/30/18 07:46 Freq: Status: Active Protocol: Document 06/25/18 12:30 CLB (Rec: 06/26/18 15:36 CLB [id number]) OP-PT Subjective Patient Comments Patient Comments Reports increased tightness and pain in neck and shoulders due to doing yard work on Monday. PT-OP-G Mobility & Gait Start: 04/30/18 07:46 Freq: Status: Active Protocol: Document 05/03/18 11:15 AMB (Rec: 05/03/18 14:30 AMB [email or web address]) OP Gait Assessment Comments Gait Comments Pt with slow careful gait, stiff with trunk rotation. PT-OP-J Posture/Palpation/Skin Start: 04/30/18 07:46 Freq: Status: Active Protocol: Document 05/03/18 11:15 AMB (Rec: 05/03/18 14:30 AMB [email or web address]) Posture Evaluation Comments Posture Comments Standing posture: knee hyperextension bilaterally, pt tends to weightbear more predominantly on her heels, as she had an injury as a child to her forefoot and it was historically painful to weightbear on it but now it is better. Hyperlordosis of lumbar spine in sitting and standing. Shoulder shrug posture, no scapular winging. Palpation Assessment Location One Palpation Details Tenderness with palpation throughout body. Upper trapezius bilaterally tight and hypertonic. Reported worst of pain at T6-7 that radiates laterally. PT-OP-K Range of Motion Start: 04/30/18 07:46 Freq: Status: Active Protocol: Document 05/03/18 11:15 AMB (Rec: 05/03/18 14:30 AMB [email or web address]) Hip Goniometric Range of Motion Hip ROM Limitations Comments Pt hypermobile throughout hips and in general throughout her body. No stretch felt with piriformis stretch until knee touches shoulder. PT-OP-M Strength Start: 04/30/18 07:46 Freq: Status: Active Protocol: Document 05/03/18 11:15 AMB (Rec: 05/03/18 14:30 AMB [email or web address]) Shoulder Strength Shoulder Manual Muscle Testing Left Flexion 4 Good Extension 4+ Good+ Abduction (C5) 4- Good- Right Flexion 4- Good- Extension 4+ Good+ Abduction (C5) 4- Good- Hip Strength Hip Manual Muscle Testing Right Flexion (L2) 4 Good Extension (S1) 4- Good- Abduction 4 Good Left Flexion (L2) 4- Good- Extension (S1) 4- Good- Abduction 4 Good PT-OP-T Assessment and Plan Start: 04/30/18 07:46 Freq: Status: Active Protocol: Document 08/24/18 14:09 [email or web address] (Rec: 08/24/18 14:11 [facility] [id number]) Physical Therapy Plan Discharge Physical Therapy Discharge Comments Have attempted to contact patient multiple times to schedule further appointments and have been unsuccessful. Last try found her phone to be disconnected. Will discharge her from PT. Last seen June.
== END 2018-10-04 11:21 | disposition home or self-care (01) ==
LOC: PHYS 12:30
PROVIDERS: Visit Provider Family Medicine
DX: M54.9 Dorsalgia, unspecified (principal); G89.29 Other chronic pain
CPT/HCPCS: 97014; 97110; 97113; 97162; G0283